=== PATIENT | female | born 1975 | race Caucasian/White ===

== ENCOUNTER 2023-04-08 10:04 | Outpatient (REF) | payer MEDICAID, SELFPAY ==
--- NOTE | ~2023-04-08 | XR_ITS ---
EXAMINATION: XR SHOULDER, LEFT CLINICAL INFORMATION: Left shoulder pain. Suspicion of rotator cuff tear COMPARISON: None available. TECHNIQUE: AP external rotation, Grashey, scapular Y, and axillary views of the left shoulder. FINDINGS: The bones are intact. No fracture. Glenohumeral and acromioclavicular alignment is anatomic with normal joint space. No abnormal soft tissue calcifications. XR/XR shoulder LT min 2V IMPRESSION: No bony abnormality.
== END 2023-04-08 10:05 | disposition home or self-care (01) ==
LOC: HO.XRAY 10:04
PROVIDERS: PCP Internal Medicine; Visit Provider Internal Medicine
DX: M25.512 Pain in left shoulder (principal)
CPT/HCPCS: 73030

== ENCOUNTER 2023-08-24 14:45 | Outpatient (REF) | payer MEDICAID, SELFPAY ==
[2023-08-25 08:30] LABS: Hepatitis B Core Antibody Nonreactive (Nonreactive); ~Hepatitis A Antibody IgM Nonreactive (Nonreactive)
[2023-08-25 08:50] LABS: HBS Num1 1.58 mIU/mL (0-7.99); HBc Num1 0.11 S/CO (0.00-0.79); HBsAGNum1 0.27 S/CO (0.00-0.99); HIV AB/AG Nonreactive (Nonreactive); HIV Num 1 0.04 S/CO (0.00-0.99); Hepatitis A Antibody IgM 0.28 Index (0-0.79); Hepatitis B Surface Antigen Negative (Negative); ~HepC Num1 0.07 S/CO (0.00-0.79); ~Hepatitis B Surface Antibody NONREACTIVE (Nonreactive); ~Hepatitis C Antibody Nonreactive (Nonreactive)
== END 2023-08-24 14:46 | disposition home or self-care (01) ==
LOC: HO.CHCLDS 14:45
PROVIDERS: Visit Provider Internal Medicine
DX: Z00.00 Encounter for general adult medical examination without abnormal findings (principal); Z11.4 Encounter for screening for human immunodeficiency virus [HIV]
CPT/HCPCS: 36415; 86704; 86706; 86709; 86803; 87340; 87389

== ENCOUNTER 2023-10-10 11:25 | Outpatient (AMB) | payer OTHER, SELFPAY ==
--- NOTE | 2023-10-10 11:31 | MHC.OFFVIS ---
Vital Signs 10/10/23 11:32 Height 5 ft 4 in Weight 150 lb BMI 25.7 Intake Visit Reasons: New patient IUD consult Driving Teacher Required: No Information Interpreted: clinical only Food Science Technician: Food Science Technician Present Allergies No Known Allergies Allergy (Verified 10/10/23 11:32) Medication List - Last Reconciled 10/10/23 by Ebony Page CNM levonorgestrel (Mirena) intrauterine Is last menstrual period known: No (IUD) Do you need a note to return to daycare/school/sports/work: No HPI HPI New patient IUD consult: Details: Patient is here to discuss replacement of her IUD. She told the medical office coordinator she is very clear she had a Pap done last year and it was negative at [facility]. No record of Pap from after 2018 found in system. Patient may be seeing [facility] site in [place] for her rn obgyn care. Review of most recent pathology in historical data shows endometrial biopsy in [address] Arteaga for menometrorrhagia. It is she has seen Dr. Lopez should she was 19 years old at the [facility] and gets her Paps done there and the only time she was seen by Dr. Arteaga was then she was bleeding very heavily and did the endometrial biopsy and then place the Mirena and she went for 1 check it after that. She says her last Pap smear was this year and it was negative. 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 Majano was her doctor. She has very much loves having the Mirena in it really helped with her bleeding once there was an adjustment time. She is lots of questions about how she will knows when she is in menopause and how the replacement procedure happens and whether not it is normal to really go years without a period. [facility] Surgical History (Updated 10/10/23 @ 11:34 by Clair Morse CMA) History of bilateral tubal ligation Social History (Updated 10/10/23 @ 11:34 by Clair Morse CMA) Alcohol intake: former Patient Tobacco Use Status: Never used Tobacco Use of substances other than those prescribed or required for medical reasons: No Sexually active: No Female Reproductive History Menstrual Age of Menarche: 13 Duration of menses: 3-5 days control method: progestin IUCD and permanent sterilization Total pregnancies: 2 Full term: 2 Date of last pap smear: 05/23/23 (negative) History of abnormal pap smear: Yes (unsure date) Date of Mammogram: 07/22/23 (negative) History of abnormal mammogram: No Physical Exam Vital Signs: BMI result Body Mass Index 25.7 Assessment & Plan Assessment & Plan (1) Presence of 52 mg levonorgestrel-releasing intrauterine device (IUD): Comment: Placed [place]orrhag[place] [address] Arteaga. to be replaced Code(s): Z97.5 - Presence of (intrauterine) contraceptive device Category: Social Hx (2) History of menorrhagia: Code(s): Z87.42 - Personal history of other diseases of the female genital tract Category: Medical (3) Cervical cancer screening: Comment: States she gets all her Pap smears through her primary care provider at the [facility] on [facility] and last 1 was negative in 2023. Code(s): Z12.4 - Encounter for screening for malignant neoplasm of cervix Category: Medical (4) Perimenopause: Comment: Discussed in detail Code(s): N95.1 - Menopausal and female climacteric states Category: Medical Plan This note is constructed using voice recognition software. While every effort has been made to ensure accuracy, pizza hut assistant errors may have been included. Discussed the timing and reasons for replacement and placement Mirena IU D and its various uses and how the influence its timing discussed the procedure itself discussed side effects discussed potential changes to menstrual bleeding discussed and discussed menopause and perimenopause issues and symptoms in detail and what to expect and considerations for considering this when it is time for the next Mirena to be replaced but at this time it would make more sense to simply replace this 1. Also discussed her history. Her next visit will be for replacement the Mirena IUD she is going to plan to take either some Tylenol or ibuprofen before coming discussed what to expect discussed that normally while it is optimal to place or replace it while somebody has there. When it is in present for this indications sometimes there is no menses , and usually we do not wait for that. Coding Level of Care Code New Pt Level 3 (08320) Diagnoses Presence of 52 mg levonorgestrel-releasing intrauterine device (IUD) Z97.5 History of menorrhagia Z87.42 Cervical cancer screening Z12.4 Perimenopause N95.1
[2023-10-10 11:32] VITALS: BMI 25.7
== END 2023-10-10 12:36 | disposition home or self-care (01) ==
LOC: HO.HWSM 11:25
PROVIDERS: PCP Internal Medicine; Visit Provider Advanced Practice Midwife
DX: Z97.5 Presence of (intrauterine) contraceptive device (principal); Z87.42 Personal history of other diseases of the female genital tract; Z12.4 Encounter for screening for malignant neoplasm of cervix; N95.1 Menopausal and female climacteric states
CPT/HCPCS: 99203

== ENCOUNTER → 2023-10-10 11:25 | Outpatient (BNVA) | payer OTHER, SELFPAY | PROVIDERS: PCP Internal Medicine; Visit Provider Advanced Practice Midwife ==

== ENCOUNTER 2023-10-24 10:08 | Outpatient (REF) | payer OTHER, SELFPAY ==
[2023-10-25 02:21] LABS: CT PCR NOT DETECTED (Not Detect.); NG PCR NOT DETECTED (Not Detect.)
[2023-10-25 08:55] LABS: Bacterial Vaginosis PCR POSITIVE (Negative); Candida Group PCR NOT DETECTED (Not Detect); Candida glab krusei PCR DETECTED (Not Detect); Trichomonas vaginalis PCR NOT DETECTED (Not Detect)
== END 2023-10-24 10:09 | disposition home or self-care (01) ==
LOC: HO.LAB 10:08
PROVIDERS: PCP Internal Medicine; Visit Provider Advanced Practice Midwife
DX: Z20.2 Contact with and (suspected) exposure to infections with a predominantly sexual mode of transmission (principal); N89.8 Other specified noninflammatory disorders of vagina
CPT/HCPCS: 0352U; 87491; 87591

== ENCOUNTER 2023-10-24 10:08 | Outpatient (AMB) | payer OTHER, SELFPAY ==
[2023-10-24 10:30] VITALS: BP 116/70; BMI 25.4
--- NOTE | 2023-10-24 10:30 | MHC.OFFVIS ---
Vital Signs 10/24/23 10:30 Height 5 ft 4 in Weight 148 lb BMI 25.4 BP 116/70 Intake Visit Reasons: Mirena Removal and Insertion Strapping Machine Operator Required: No Strapping Machine Operator Services: Strapping Machine Operator Present Information Interpreted: clinical only Turner Splitter Machine Operator: Turner Splitter Machine Operator Present Allergies No Known Allergies Allergy (Verified 10/24/23 10:30) Medication List - Last Reconciled 10/24/23 by Ebony Page CNM levonorgestrel (Mirena) intrauterine Is last menstrual period known: No (IUD) HPI HPI Mirena Removal and Insertion: Details: Patient is here for Mirena replacement she had the Mirena placed in [address] Arteaga after menorrhagia and a negative endometrial biopsy. She very much does not want those periods to return again and she has not had any periods since she would like the Mirena replaced there was a full discussion about timing Mirena at the last visit she does not get periods at all so it can not timed to menses. She use working today but left work to come here but she is uncomfortable she can work until she feels better. [facility] Surgical History History of bilateral tubal ligation Social History Alcohol intake: former Patient Tobacco Use Status: Never used Tobacco Female Reproductive History Menstrual Age of Menarche: 13 Duration of menses: <3 days control method: progestin IUCD and permanent sterilization Total pregnancies: 2 Full term: 2 Date of last pap smear: 05/23/23 (neg) History of abnormal pap smear: Yes (unsure date) Date of Mammogram: 07/22/23 (neg) Physical Exam Vital Signs: Last Vital Signs BP 116/70 10/24/23 10:30 BMI result Body Mass Index 25.4 External Female Exam: normal external appearance Speculum Exam - Vagina: normal appearance of the vagina and normal vaginal discharge Speculum Exam - Cervix: normal appearance of the cervix Bimanual exam- vagina & uterus: normal bimanual exam, uterine size normal, consistency normal, uterine mobility normal, uterine shape normal and non-tender Bimanual Exam- Adnexa, other: normal adnexae, no masses and No adnexal tenderness Office Procedures IUD Insert/Removal Details Details: ---Patient is here for her IUD removal and insertion. Bimanual exam was done. Her uterus is firm, nontender, and appropriate sized, and is antiverted. Cultures/DNA tests were obtained for GC chlamydia trich Gardnerella and Marah. Cervix appears pink smooth nulliparous and healthy patient has had 2 children vaginally but it was many many years ago) Mirena strings visible in os extending about 2-3 cms. The IUD strings were grasped with ring forceps, and as patient coughed the IUD was removed w 2 tugs ---The cervix was cleaned with Betadine. Tenaculum was placed on the cervix slowly to minimize cramping. The uterus was sounded slowly and gently, but resisted passage of the sound past the internal os and a cervical dilator was used with 2 passes and she was re sounded; it showed a measurement of 7.5 cm., The IUD was removed from its package, after checking identifying information and lot dates and expiration dates and and gently inserted into the os, as per the IUD insertion procedure. The strings were then trimmed to 3-4 centimetres. The tenaculum was removed and gentle pressure applied with a swab, until any bleeding subsided from the tenaculum sites. The speculum was gently removed. The patient sat up. She was cramping and teary.. Because of the challenges getting through the internal os out of an abundance of caution I am ordering a stat ultrasound to verify correct intrauterine placement of the Mirena IU S. She and I will have a tele visit after the ultrasound. I Reviewed what to expect, and what indications would necessitate a call. Pt to call for fever, untoward pain or cramping. I reviewed any appropriate backup method. I recommend no sex for several days as well. Pt to return for recheck as scheduled. 91408-ETQ Insertion 91552-UWB Removal Procedure code (CPT) selection complete Office Meds Mirena 21 mcg/24 hr (up to 8 years) 52 mg intrauterine device Performing Provider: Ebony Page CNM [facility] Administered by: Clair Morse CMA on 10/24/23 11:27 Dose Route Admin Location Dispensed Lot Number Expiration Date [facility] Armed Custom Protection Officer 1 device intrauterine 1 ea [id number] 12/21/25 Results AMB Test Urine AMB Test Urine Negative Last Edit by Clair Morse CMA on 10/24/23 11:01 Results Reviewed Results Reviewed: Laboratory Last Values [facility] Negative 10/24/23 10:59 Assessment & Plan Assessment & Plan (1) Presence of 52 mg levonorgestrel-releasing intrauterine device (IUD): Comment: Placed [place]orrhag[place] [address] Arteaga. to be replaced; Mirena 10/23/2022 and replaced 10/23/2022 challenging getting through the internal os who get ultrasound to verify placement. Code(s): Z97.5 - Presence of (intrauterine) contraceptive device Category: Social Hx (2) History of menorrhagia: Code(s): Z87.42 - Personal history of other diseases of the female genital tract Category: Medical (3) Cervical cancer screening: Comment: States she gets all her Pap smears through her primary care provider at the [facility] and last 1 was negative in 2023. Code(s): Z12.4 - Encounter for screening for malignant neoplasm of cervix Category: Medical (4) Perimenopause: Comment: Discussed in detail Code(s): N95.1 - Menopausal and female climacteric states Category: Medical Plan Please see the procedure section for full documentation the removal and re insertion of a new Mirena IU S. because her internal os was so tightly closed and I needed to use the dilator I am requesting a stat ultrasound to verify the intrauterine placement of the Mirena IU S the replacement patel went very smoothly. The patient and I will have a tele visit after the results of the ultrasound are in so I can review with her. Otherwise we will see her in 6 weeks. She is to call for any untoward cramping pain fever bleeding sense of expulsion. I recommend no sex for several days and the bleeding may take a while to subside. I recommend ibuprofen for the cramping or warm water bottle. Orders: Orders AMB HCG Urine Test Today Z32.02 - Encounter for test, result negative AMB IUD Insertion/Removal - Practice Supplied Today Z30.430 - Encounter for insertion of intrauterine contraceptive device US pelvic and transvaginal Today N95.1 - Menopausal and female climacteric states, Z12.4 - Encounter for screening for malignant neoplasm of cervix, Z87.42 - Personal history of other diseases of the female genital tract, Z97.5 - Presence of (intrauterine) contraceptive device Coding Level of Care Code Est Pt Level 3 (44116) Diagnoses Presence of 52 mg levonorgestrel-releasing intrauterine device (IUD) Z97.5 History of menorrhagia Z87.42 Cervical cancer screening Z12.4 Perimenopause N95.1 CPT Codes Details - CPT: 16633-CWD Insertion ([id number]) Details - CPT: 33177-VVQ Removal ([id number])
== END 2023-10-24 11:42 | disposition home or self-care (01) ==
LOC: HO.HWSM 10:08
PROVIDERS: PCP Internal Medicine; Visit Provider Advanced Practice Midwife
DX: N95.1 Menopausal and female climacteric states (principal); Z30.433 Encounter for removal and reinsertion of intrauterine contraceptive device; Z87.42 Personal history of other diseases of the female genital tract; Z32.02 Encounter for pregnancy test, result negative
CPT/HCPCS: 58300; 58301; 99213

== ENCOUNTER 2023-10-24 12:10 | Outpatient (REF) | payer OTHER, SELFPAY ==
--- NOTE | ~2023-10-24 | US_ITS ---
EXAMINATION: US PELVIS CLINICAL INFORMATION: Difficult IUD insertion COMPARISON: Pelvic ultrasound December 14, 2017 TECHNIQUE: Ultrasound of the pelvis is performed using both transabdominal and transvaginal transducers along with Doppler. Transvaginal imaging is performed due to inadequate visualization transabdominally. FINDINGS: Uterus: The uterus is anteverted and measures 9.6 x 4.5 x 5.3 cm. Only 2 of the previously seen 3 intramural leiomyomatous is are visualized, measuring 2.1 x 2.3 x 2.2 cm and 1.1 x 0.7 x 0.7 cm. Intrauterine device is noted in situ. No free fluid. Adnexa: Right ovary measures 2.0 x 1.1 x 1.3 cm and only visible on the transabdominal view. Left ovary was not visualized. US/US pelvic and transvaginal IMPRESSION: 1. Intrauterine device in situ. 2. Only 2 of previously seen 3 intramural leiomyomatous were visualized along the posterior uterine body/fundus.
== END 2023-10-24 12:11 | disposition home or self-care (01) ==
LOC: HO.US 12:10
PROVIDERS: Visit Provider Advanced Practice Midwife
DX: Z30.433 Encounter for removal and reinsertion of intrauterine contraceptive device (principal); N95.1 Menopausal and female climacteric states; Z87.42 Personal history of other diseases of the female genital tract
CPT/HCPCS: 58300; 58301; 76830; 76856; 81025; J7298

== ENCOUNTER 2024-03-04 14:00 | Outpatient (RCR) | payer OTHER, SELFPAY ==
[2024-02-12 13:52] VITALS: BP 118/78
== END 2024-03-04 14:12 | disposition home or self-care (01) ==
LOC: HO.PTCHIC 14:00
PROVIDERS: PCP Internal Medicine; Visit Provider Internal Medicine
DX: H81.10 Benign paroxysmal vertigo, unspecified ear (principal)
CPT/HCPCS: 97112; 97161

== ENCOUNTER 2024-04-02 09:11 | Outpatient (REF) | payer OTHER, SELFPAY ==
[2024-04-02 14:26] LABS: Hemoglobin 13.6 g/dl (12.0-16.0); Mean Corpuscular HGB Conc 32.4 g/dl (31.0-35.0); Mean Corpuscular Hemoglobin 28.9 pg (27.0-33.0); Mean Corpuscular Volume 89.2 fL (80.0-98.0); Mean Platelet Volume 10.2 fL (9.4-12.3); Platelet Count 227 X10*3/uL (160-400); Red Blood Count 4.71 X10*6/uL (4.20-5.50); Red Cell Distribution Width 12.7 % (11.0-16.0); White Blood Count 5.4 X10*3/uL (4.8-10.8)
[2024-04-02 14:51] LABS: Alanine Aminotransferase 20 U/L (0-31); Albumin Level 4.2 g/dL (3.5-5.0); Alkaline Phosphatase 65 U/L (39-117); Anion Gap 12 (12-20); Aspartate Amino Transferase 27 U/L (5-31); Bilirubin Total 0.4 mg/dL (0.0-1.0); Blood Urea Nitrogen 10 mg/dL (9-16); Calcium 8.8 mg/dL (8.4-10.2); Carbon Dioxide 29 mmol/L (22-29); Chloride 106 mmol/L (96-108); Cholesterol 202 mg/dL (<200); Estimated Glomerular Filt Rate > 60; Glucose Random 86 mg/dL (60-115); HDL Cholesterol 54 mg/dL (>40); LDL Cholesterol Calculated 136 mg/dL (<100); Potassium 4.1 mmol/L (3.3-5.1); Sodium 143 mmol/L (135-145); Total Protein 7.1 g/dL (6.5-8.0); Triglycerides 62 mg/dL (<150)
[2024-04-02 15:01] LABS: TSH reflex Free T4 1.12 uIU/mL (0.32-4.0)
== END 2024-04-02 09:12 | disposition home or self-care (01) ==
LOC: HO.CHCLDS 09:11
PROVIDERS: Visit Provider Internal Medicine
DX: Z13.6 Encounter for screening for cardiovascular disorders (principal); D64.9 Anemia, unspecified
CPT/HCPCS: 36415; 80053; 80061; 84443; 85027

== ENCOUNTER 2024-08-16 15:40 | Outpatient (AMB) | payer OTHER, SELFPAY ==
[2024-08-16 15:44] VITALS: BP 112/72; PULSE 72; O2SAT 93; BMI 26.4
--- NOTE | 2024-08-16 15:44 | A.OFFVIS_ITS ---
Vital Signs 08/16/24 15:44 Height 5 ft 4 in Weight 154 lb BMI 26.4 BP 112/72 Blood Pressure Location Rt brachial Position Sitting Pulse 72 Pulse Source Pulse Oximeter Pulse Oximetry (%) 93 Oxygen Delivery Method Room Air Intake Visit Reasons: Colonoscopy Screening Intake Note: NEW PATIENT for initial colo screening, routine. Chief Complaint; No GI sx or concerns at this time per pt. Accounting Recruiter Required: No Accompanied by: Self / Same As Patient Allergies No Known Allergies Allergy (Verified 08/16/24 15:44) HPI HPI Colonoscopy Screening: Details: 48 year old? female with no significant past medical history is here today for pre colonoscopy screening.? Patient was sent to us by her PCP.? Patient had colonoscopy in her 20s for change in her bowel pattern, colonoscopy was normal. Patient denies any gastrointestinal symptoms in the past or at present.? Denies any personal or family history of gastrointestinal disease, colon polyps, or CRC.? Denies history of difficulty with sedation or anesthesia in the past.? Negative for history of sleep apnea.? Denies any history of cardiac, renal, pulmonary, or hepatic disease.?? No history of infectious? diseases like hepatitis A, B, C, HIV or tuberculosis.? Patient is not on any anticoagulation PFSH Surgical History History of bilateral tubal ligation Family History Mother Rheumatoid arthritis Social History Alcohol intake: former Comment: Sober x2 years Patient Tobacco Use Status: Never used Tobacco Use of substances other than those prescribed or required for medical reasons: No Female Reproductive History Menstrual Age of Menarche: 13 Review of Systems Const Denies weight gain and Denies weight loss ENT Reports no additional complaints, Denies dysphagia and Denies odynophagia Card Reports no additional complaints Resp Reports no additional complaints GI Denies abdominal pain, Denies belching, Denies melena, Denies bloating, Denies change in bowel habits, Denies dysphagia, Denies excessive flatus, Denies dyspepsia, Denies heartburn, Denies diarrhea, Denies loose stools, Denies nausea, Denies odynophagia and Denies vomiting Musc Reports no additional complaints Neuro Reports no additional complaints Psych Reports no additional complaints Endo Reports no additional complaints Physical Exam Const General: healthy appearing, no acute distress and well developed Nutritional Appearance: well nourished Orientation/consciousness: patient oriented x3 Resp Effort & Inspection: normal respiratory effort, able to speak in complete sentences, no tracheal deviation and symmetric chest movement Auscultation: clear to auscultation bilaterally Cardio Rate: regular rate GI Inspection: Yes normal to inspection and No distended Palpation (GI): Soft to palpation, not firm, nontender and No hepatosplenomegaly present Auscultation: normal bowel sounds General: Yes no CVA tenderness Back/Spine/Pelvis Back: no CVA tenderness Skin General skin exam: elasticity normal, turgor normal and dry skin Neuro General: patient oriented x3 Psych Appearance: grossly normal Mental Status: mental status grossly normal Assessment & Plan Assessment & Plan (1) Screen for colon cancer: Code(s): Z12.11 - Encounter for screening for malignant neoplasm of colon Plan Patient denies any GI, cardiac or respiratory symptoms.? Denies any issues with anesthesia in the past.? Denies any history of sleep apnea.? No history i nfectious diseases in the past or present.? Not on any anticoagulation therapy.? No family or personal history of colon cancer or polyps.? Patient denies melena, hematochezia, unintentional weight loss or ribbon like stools.? Discussed at length the pre-procedure,? prep, diet & medications as well as what to expect prior, during and after the procedure.?? Stressed the importance of good bowel prep.? Recommended the use of Vaseline or Calmoseptine OTC & baby wipes with bowel movements to promote comfort.? ?Patient verbalizes understanding and agrees to plan of care.? She was given the opportunity to ask questions and all questions answered.? We will see her after the procedure.? Medications: New polyethylene glycol 3350 (Miralax) As directed by gastroenterology department at [facility] 238 grams PO ONCE 238 grams 0RF Z12.11 - Encounter for screening for malignant neoplasm of colon bisacodyl (Dulcolax (bisacodyl)) 10 mg (2 x 5 mg) PO BEDTIME 180 tabs 4RF Coding Level of Care Code New Pt Level 3 (87136) Diagnoses Screen for colon cancer Z12.11 Time Spent (min) 40 Comment 30 minutes spent with patient and additional 10 minutes spent reviewing her records
--- OUTSIDE RECORDS SUMMARY | 2024-08-16 16:06 | XMS_ITS | Encounter Summary ---
Author Organization [employer] Address [address] [facility] [address] [place] [address] Care Team Providers Care Home Health Nurse Name Role Phone Karri Pierson MD Primary Care Provider [phone] Reason for Visit * Reason Onset Date Comments Call Back Request 10/03/2023 Encounter Details Date Type Department Care Team (Late st Contact Info) Description 10/03/2023 Telephone [facility] MED[facility]INE [address] [place] [address] Karri Pierson MD [address] [place] [address] [phone] Call Back Request Social History Tobacco Use Types Packs/Day Years Used Date Smoking Tobacco: Never Passive Smoke Exposure: Never Smokeless Tobacco: Never Alcohol Use Standard Drinks/Week Comments Never 0 (1 standard drink = 0.6 oz pur e alcohol) Depression Answer Date Recorded Patient Health Questionnaire-9 Score 7 08/11/2022 Housing Stability Answer Date Recorded What is your housing situation today? I have wilma [place] 08/21/[address] you li ve. Do you have problems with any of the following? None of the above 08/21/2023 Food Insecurity Answer Date Recorded Within the past 12 months, y ou worried that your food would run out before you got money to buy more: Never True 08/21/2023 Within the past 12 months,th e food you bought just didn't last and you didn't have enough money to get more: Never True Transportation Answer Date Recorded In the past 12 months, has l ack of transportation kept you from medical appts, meetings, work or from getting things needed for daily living? No 08/21/2023 Utilities Answer Date Recorded In the past 12 months, has t he electric, gas, oil or water company threatened to shut off services in your home? No 08/21/2023 Depression Answer Date Recorded Patient Health Questionnaire-2 Score 2 08/11/2022 Comments Unknown Sex and Gender Information Value Date Recorded Sex Assigned at Female 02/21/2022 10:22 AM EDT Legal Sex Female 10:22 AM EDT Gender Identity Female 02/21/2022 10:22 AM EDT Sexual Orientation Straight 02/21/2022 10 :22 AM EDT documented as of this encounter Miscellaneous Notes * Telephone Encounter - Myrtle Gamble - 10/03/2023 4:07 PM EDT Tc from pt requesting a call back to see what's going to happen with her meds due to appt with PCP is on 12/13 documented in this encounter Plan of Treatment Upcoming Encounters Date Type Department Care Team (Late st Contact Info) Description 09/03/2024 9:30 AM EDT Office Visit [facility] MED [facility] [address] [place] [address] Karri Pierson MD [address] [place] [address] documented as of this encounter Visit Diagnoses Not on filedocumented in this encounter Additional Health Concerns Assessment Noted Time PHQ-9 Depression Total Score: 7 08/12/19 23 1:21 PM EDT documented as of this encounter Care Teams Home Health Nurse Relationship Specialty Start Date End Date Karri Pierson MD [address] [place] [address] PCP - General Internal Medicine 02/21/12 documented as of this encounter
--- OUTSIDE RECORDS SUMMARY | 2024-08-16 16:06 | XMS_ITS | Encounter Summary ---
Author Organization [employer] Address [address] [place] [address] [address] [place] [address] Care Team Providers Care Creative Director Name Role Phone Karri Pierson MD Primary Care Provider [phone] Encounter Details Date Type Department Care Team ([facility] Contact Info) Description 08/17/2022 Abstract [facility] MED & PEDS [address] [place], [place] [phone] Karri Pierson MD [address] [place], [place] [phone] Social History Tobacco Use Types Packs/Day Years Used Date Smoking Tobacco: Never Smokeless Tobacco: Never Alcohol Use Standard Drinks/Week Comments Never 0 (1 standard drink = 0.6 oz pur e alcohol) Depression Answer Date Recorded Patient Health Questionnaire-9 Score 7 08/11/2022 Depression Answer Date Recorded Patient Health Questionnaire-2 Score 2 08/11/2022 Comments Unknown Sex and Gender Information Value Date Recorded Sex Assigned at Female 02/21/2022 10:22 AM EDT Legal Sex Female 10:22 AM EDT Gender Identity Female 02/21/2022 10:22 AM EDT Sexual Orientation Straight 02/21/2022 10 :22 AM EDT COVID-19 Exposure Response Date Recorded In the last 10 days, have yo u been in contact with someone who was confirmed or suspected to have Coronavirus/COVID-19? No / Unsure 08/11/2022 1:05 PM EDT documented as of this encounter Plan of Treatment Upcoming Encounters Date Type Department Care Team ([facility] Contact Info) Description 09/03/2024 9:30 AM EDT Office Visit [facility] MED & PEDS [address] [place] [address] Karri Pierson MD [address] [place] [address] documented as of this encounter Procedures Procedure Name Priority Date/Time Associated Diagnosis Comments MAMMOGRAPHY Routine 08/11/2022 documented in this encounter Results * Mammography (08/11/2022) Mammogram performed Anatomical Region Laterality Modality Other us Historical Provider HEALTH MAINTENANCE Final Result documented in this encounter Visit Diagnoses Not on filedocumented in this encounter Additional Health Concerns Assessment Noted Time PHQ-9 Depression Total Score: 7 08/12/19 23 1:21 PM EDT documented as of this encounter Care Teams Creative Director Relationship Specialty Start Date End Date Karri Pierson MD [address] [place] [address] PCP - General Internal Medicine 02/21/12 documented as of this encounter
--- OUTSIDE RECORDS SUMMARY | 2024-08-16 16:06 | XMS_ITS | Encounter Summary ---
Author Organization [employer] Address [address] [place] [address] Care Team Providers Care Voucher Examiner Name Role Phone Karri Pierson MD Primary Care Provider [phone] Reason for Referral * Imaging (Urgent) - Closed Specialty Diagnoses / Procedures Referred By Contej t Referred To Contact Radiology Diagnoses Acute pain of left shoulder Procedures MR Shoulder w/o Contrast Left Karri Pierson MD [address] [place] [address] Phone: tel: fax: [facility] [address] [place] [address] Phone: tel: fax: Referral ID Status Reason Start Date Expiration Date Visits Re quested Visits Authorized [id number] Closed 05/02/2023 05/01/2024 1 1 Encounter Details Date Type Department Care Team (Late st Contact Info) Description 05/01/2023 Orders Only [facility] MED & PEDS [address] [place], [place] [phone] Karri Pierson MD [address] [place], [place] [phone] Acute pain of left shoulder (Primary Dx) Social History Tobacco Use Types Packs/Day Years Used Date Smoking Tobacco: Never Passive Smoke Exposure: Never Smokeless Tobacco: Never Alcohol Use Standard Drinks/Week Comments Never 0 (1 standard drink = 0.6 oz pur e alcohol) Depression Answer Date Recorded Patient Health Questionnaire-9 Score 7 08/11/2022 Housing Stability Answer Date Recorded What is your housing situation today? Not on jose manuel e 02/14/[address] you li ve. Do you have problems with any of the following? None of the above 02/14/2023 Food Insecurity Answer Date Recorded Within the past 12 months, y ou worried that your food would run out before you got money to buy more: Never True 02/14/2023 Within the past 12 months,th e food you bought just didn't last and you didn't have enough money to get more: Never True Transportation Answer Date Recorded In the past 12 months, has l ack of transportation kept you from medical appts, meetings, work or from getting things needed for daily living? No 02/14/2023 Utilities Answer Date Recorded In the past 12 months, has t he electric, gas, oil or water company threatened to shut off services in your home? No 02/14/2023 Depression Answer Date Recorded Patient Health Questionnaire-2 Score 2 08/11/2022 Comments Unknown Sex and Gender Information Value Date Recorded Sex Assigned at Female 02/21/2022 10:22 AM EDT Legal Sex Female 10:22 AM EDT Gender Identity Female 02/21/2022 10:22 AM EDT Sexual Orientation Straight 02/21/2022 10 :22 AM EDT documented as of this encounter Plan of Treatment Upcoming Encounters Date Type Department Care Team (Late st Contact Info) Description 09/03/2024 9:30 AM EDT Office Visit [facility] MED & PEDS [address] [place] [address] Karri Pierson MD [address] [place] [address] Scheduled Orders Name Type Priority Associated Diagnoses Orde r Schedule MR Shoulder w/o Contrast Left Imaging Urgent Acute pain of left shoulder Expected: 05/02/2023, Expires: 05/02/2024 documented as of this encounter Visit Diagnoses Diagnosis Acute pain of left shoulder- Primary documented in this encounter Additional Health Concerns Assessment Noted Time PHQ-9 Depression Total Score: 7 08/12/19 23 1:21 PM EDT documented as of this encounter Care Teams Voucher Examiner Relationship Specialty Start Date End Date Karri Pierson MD [address] [place] [address] PCP - General Internal Medicine 02/21/12 documented as of this encounter
--- OUTSIDE RECORDS SUMMARY | 2024-08-16 16:06 | XMS_ITS | Encounter Summary ---
Author Organization [employer] Address [address] [facility] [address] [place] [address] Care Team Providers Care Orthopedic Surgeon Name Role Phone Karri Pierson MD Primary Care Provider [phone] Encounter Details Date Type Department Care Team (Late st Contact Info) Description 05/15/2023 Telephone [facility] MEDICINE [address] [place] [address] Karri Pierson MD [address] [place], [place] [phone] Social History Tobacco Use Types Packs/Day Years [...] Description 09/03/2024 9:30 AM EDT Office Visit [facility] MED & PEDS [address] [place] [address] Karri Pierson MD [address] [place] [address] documented as of this encounter Visit Diagnoses Not on filedocumented in this encounter Additional Health Concerns Assessment Noted Time PHQ-9 Depression Total Score: 7 08/12/19 23 1:21 PM EDT documented as of this encounter Care Teams Orthopedic Surgeon Relationship Specialty Start Date End Date Karri Pierson MD [address] [place] [address] PCP - General Internal Medicine 02/21/12 documented as of this encounter
--- OUTSIDE RECORDS SUMMARY | 2024-08-16 16:06 | XMS_ITS | Encounter Summary ---
Author Organization [employer] Address [address] [facility] [address] [place] [address] Care Team Providers Care Angle Roll Operator Name Role Phone Karri Pierson MD Primary Care Provider [phone] Reason for Visit * Reason Onset Date Comments Med Refill 06/16/2023 Encounter Details Date Type Department Care Team (Late st Contact Info) Description 06/16/2023 Refill [facility] MEDICINE [address] [place] [address] Karri Pierson MD [address] [place] [address] [phone] Acute pain of left shoulder (Primary Dx) [...] encounter Miscellaneous Notes * Telephone Encounter - Se Reyes - 06/16/2023 8:27 AM EST TC from pt requesting medication refill. Medications needing refill : oxyCODONE-acetaminophen (Percocet) 5-325 MG tablet To be sent to: [id number] [place], [place] - [facility] [address] documented in this encounter Plan of Treatment Upcoming Encounters Date Type Department Care Team (Late st Contact Info) Description 09/03/2024 9:30 AM EDT Office Visit [facility] MED & PEDS [address] [place] [address] Karri Pierson MD [address] [place] [address] documented as of this encounter Visit Diagnoses Diagnosis Acute pain of left shoulder- Primary documented in this encounter Additional Health Concerns Assessment Noted Time PHQ-9 Depression Total Score: 7 08/12/19 23 1:21 PM EDT documented as of this encounter Care Teams Angle Roll Operator Relationship Specialty Start Date End Date Karri Pierson MD [address] [place] [address] PCP - General Internal Medicine 02/21/12 documented as of this encounter
--- OUTSIDE RECORDS SUMMARY | 2024-08-16 16:06 | XMS_ITS | Encounter Summary ---
Author Organization [employer] Address [address] [place] [address] 7[address] [place] [address] Care Team Providers Care Cord Maker Name Role Phone Karri Pierson MD Primary Care Provider [phone] Encounter Details Date Type Department Care Team (Late Contact Info) Description 08/15/2022 Orders Only [facility] MED & PEDS [address] [place], [place] [phone] Karri Pierson MD [address] [place], [place] [phone] Cervicogenic headache (Primary Dx) Social History Tobacco Use Types [...] Encounters Date Type Department Care Team (Late Contact Info) Description 09/03/2024 9:30 AM EDT Office Visit [facility] MED & PEDS [address] [place] [address] Karri Pierson MD [address] [place] [address] documented as of this encounter Visit Diagnoses Diagnosis Cervicogenic headache- Primary Headache documented in this encounter Additional Health Concerns Assessment Noted Time PHQ-9 Depression Total Score: 7 08/12/19 23 1:21 PM EDT documented as of this encounter Care Teams Cord Maker Relationship Specialty Start Date End Date Karri Pierson MD [address] [place] [address] PCP - General Internal Medicine 02/21/12 documented as of this encounter
--- OUTSIDE RECORDS SUMMARY | 2024-08-16 16:06 | XMS_ITS | Encounter Summary ---
Author Organization [employer] Address [address] [facility] [address] [place] [address] Care Team Providers Care Substation Operator Name Role Phone Karri Pierson MD Primary Care Provider [phone] Reason for Visit * Reason Onset Date Comments Call Back Request 05/22/2023 Encounter Details Date Type Department Care Team (Late st Contact Info) Description 05/22/2023 Telephone [facility] MEDICINE [address] [place] [address] Karri Pierson MD [address] [place] [address] [phone] Call Back Request Social History Tobacco Use [...] past 12 months, has t he electric, [employer], oil or water [employer] threatened to shut off services in your [...] encounter Miscellaneous Notes * Telephone Encounter - Cristela Cotton RN - 05/24/2023 11:16 AM EST Pt needs excuse letter from 05/17/23 until 05/25/23 as pt has Ortho appt tomorrow. * Telephone Encounter - Cristela Cotton RN - 05/24/2023 10:00 AM EST Placed call to pt regarding message below. Pt is requesting another short dose of the Oxycodone as pt states it helps with pain and sleep. Pt has upcoming appt with Ortho on Monday and shoulder pain is bad enough that pt has not been able to work since the following day after pt was seen. Pt is requesting an excuse not for this past week since last appt as pt has not been able to work. Regarding FMLA advised pt needs to contact employer for directions and how to contact [employer] company for further instruction. Pt informed message would be sent to PCP for refill request and work excuse. Pt agrees with plan. * Telephone Encounter - Mariajose Renee - 05/23/2023 2:56 PM EST Tc from pt requesting a call back, pt states have a couple questions in regards her shoulder and prescriptions and Question family medical leave. * Telephone Encounter - Myrtle Gamble - 05/22/2023 9:30 AM EST Tc from pt requesting a call back, pt states have a couple questions in regards her shoulder and prescriptions. documented in this encounter Plan of Treatment Upcoming Encounters Date Type Department Care Team (Late st Contact Info) Description 09/03/2024 9:30 AM EDT Office Visit [facility] MED & PEDS [address] [place] [address] Karri Pierson MD [address] [place] [address] documented as of this encounter Visit Diagnoses Diagnosis Acute pain of left shoulder- Primary documented in this encounter Additional Health Concerns Assessment Noted Time PHQ-9 Depression Total Score: 7 08/12/19 23 1:21 PM EDT documented as of this encounter Care Teams Substation Operator Relationship Specialty Start Date End Date Karri Pierson MD [address] [place] [address] PCP - General Internal Medicine 02/21/12 documented as of this encounter
--- OUTSIDE RECORDS SUMMARY | 2024-08-16 16:06 | XMS_ITS | Clinical Summary ---
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 DX:Carcinoma in situ of cervix uteri; COMMENT: LEEP Family History Medical History Relation Name Comments Other: alive and well Father Other: alive and well Mother Relation Name Status Comments Father Mother Social History Tobacco Use Types Packs/Day Years Used Date Smoking Tobacco: Never Alcohol Use Standard Drinks/Week Comments Yes 0 (1 standard drink = 0.6 oz pur e alcohol) Comments Unknown Sex and Gender Information Value Date Recorded Sex Assigned at Not on file Legal Sex Female 8:00 AM EST Gender Identity Not on file Sexual Orientation Not on file Obstetrics History Plan of Treatment Health Maintenance Due Date Last Done Comments DTaP,Tdap,and Td Vaccines (1 - Tdap) 11/14/1994 Hepatitis B Vaccines (1 of 3 - 19+ 3-dose series) 11/14/1994 Cervical Cancer Screening: Pap Smear 11/14/1996 Colorectal Cancer Screening: Colonoscopy 03/27/2022 Depression Screening 03/27/2022 HIV Screening 03/27/2022 Hepatitis C Screening 03/27/2022 Social Influencers of Health Screening 03/27/2022 COVID-19 Vaccine ( season) 2023 Influenza Vaccine (Season Ended) 2024 Breast Cancer Screening 08/13/2025 08/14/19, 08/11/2022, 04/06/2021, Additional history exists HIB Vaccines Aged Out No longer eligi ble based on patient's age to complete this topic HPV Vaccines Aged Out No longer eligi ble based on patient's age to complete this topic Hepatitis A Vaccines Aged Out No long er eligible based on patient's age to complete this topic IPV Vaccines Aged Out No longer eligi ble based on patient's age to complete this topic MMR Vaccines Aged Out No longer eligi ble based on patient's age to complete this topic Meningococcal ACWY Vaccine Aged Out N o longer eligible based on patient's age to complete this topic Meningococcal B Vaccine Aged Out No l onger eligible based on patient's age to complete this topic Pneumococcal Vaccine: Pediatrics (0 to 5 Years) and At-Risk Patients (6 to 64 Years) Aged Out No longer eligible based on patient's age to complete this topic RSV Immunization Patients Under 20 months Aged Out No longer eligible based on patient's age to complete this topic Varicella Vaccines Aged Out No longer eligible based on patient's age to complete this topic Procedures Procedure Name Priority Date/Time Associated Diagnosis Comments [facility] SCREENING DIGITAL Routine 08/14/2023 4:25 PM EDT Encounter for screening mammogram for malignant neoplasm of breast from Last 3 Months or Most Recently Relevant to Health Maintenance Results * [facility] SCREENING DIGITAL (08/14/2023 4:25 PM EDT) Anatomical Region Laterality Modality Mammography 08/14/2023 1:41 PM EDT Narrative 08/14/2023 4:25 PM EDT [facility] Diagnostic Imaging Department [address] [place] [address] Patient: ??SOPHIA ORTA ?/Age/Sex: 1975 - 47 - F Unit#: ??[id number] ? Location/Status: ??SPDIMAM/REG CLI ? Mnemonic/Ordering Site: ??DIGSC/SPMAM Ordering Physician: ??ROMAN PIERSON Bipin Screening Digital - 08/14/23 - 1411 Report Status:Signed EXAM: [facility] Screening Digital EXAM DATE AND TIME: 08/14/2023 2:12 PM HISTORY: ??Screening. Patient states 1520 pound weight loss since previous exam. Frozen left shoulder with severely decreased range of motion. COMPARISON: ??08/11/22, 04/05/21, 01/24/19 TECHNIQUE: Bilateral digital breast tomosynthesis was performed in the CC and MLO projections. Computer aided detection with [employer] 3D 3.1 was employed. TISSUE DENSITY: b. There are scattered areas of fibroglandular density. FINDINGS: The left MLO view is limited due to the poorly mobile left shoulder. No suspicious masses, grouped microcalcifications, or areas of architectural distortion are seen. There are rare benign calcifications. The skin and vascularity are unremarkable. IMPRESSION: No mammographic evidence of malignancy is seen. No significant change. A negative mammogram in the presence of a clinically suspicious palpable abnormality does not preclude the possibility of malignancy or alter the indications for biopsy. BI-RADS: ??Category 2: Benign RECOMMENDATION(S): 1: Routine screening mammogram BILATERAL in 1 year. Dictating Physician: ??CANDI RODRIGUEZ MD Electronically Signed by: ??CANDI RODRIGUEZ MD Dic Date/Time: ??08/14/23 1624 Sign date/Time: ??08/14/23 1625 Procedure Note Candi Rodriguez MD - 12/11/2023 [facility] Diagnostic Imaging Department [address] [place] [id number] Patient: SOPHIA ORTA Jesus Alberto /Age/Sex: 1975 - 47 - F Unit#: [id number] Location/Status: SPDIMAM/REG CLI Mnemonic/Ordering Site: [facility] Ordering Physician: ROMAN PIERSON [facility] Screening Digital - 08/14/23 - 1411 Report Status:Signed EXAM: [facility] Screening Digital EXAM DATE AND TIME: 08/14/2023 2:12 PM HISTORY: Screening. Patient states 1520 pound weight loss since previousexam. Frozen left shoulder with severely decreased range of motion. COMPARISON: 08/11/22, 04/05/21, 01/24/19 TECHNIQUE: Bilateral digital breast tomosynthesis was performed in the CCand MLO projections. Computer aided detection with [employer] 3D 3.1was employed. TISSUE DENSITY: b. There are scattered areas of fibroglandular density. FINDINGS: The left MLO view is limited due to the poorly mobile left shoulder. No suspicious masses, grouped microcalcifications, or areas ofarchitectural distortion are seen. There are rare benign calcifications. The skin and vascularity are unremarkable. IMPRESSION: No mammographic evidence of malignancy is seen. No significant change. A negative mammogram in the presence of a clinically suspicious palpable abnormality does not preclude the possibility of malignancy or alter the indications for biopsy. BI-RADS: Category 2: Benign RECOMMENDATION(S): 1: Routine screening mammogram BILATERAL in 1 year. Dictating Physician: CANDI RODRIGUEZ MD Electronically Signed by: CANDI RODRIGUEZ MD Dic Date/Time: 08/14/23 1624 Sign date/Time: 08/14/23 1625 us Roman Pierson MD IMG BI PROCEDURES Final R esult from Last 3 Months or Most Recently Relevant to Health Maintenance
--- OUTSIDE RECORDS SUMMARY | 2024-08-16 16:06 | XMS_ITS | Encounter Summary ---
Author Organization [employer] Address [address] [facility] 7t [place] [address] Care Team Providers Care Senior Telecommunications Consultant Name Role Phone Karri Pierson MD Primary Care Provider [phone] Encounter Details Date Type Department Care Team (Late st Contact Info) Description 08/15/2023 Orders Only [facility] [address] [place], [place] [phone] Provider, MD Radha Social History Tobacco Use Types Packs/Day Years [...] Description 09/03/2024 9:30 AM EDT Office Visit [facility] MED & PEDS [address] [place] [address] Karri Pierson MD [address] [place] [address] documented as of this encounter Procedures Procedure Name Priority Date/Time Associated Diagnosis Comments BI MAMMOGRAM SCREENING BILATERAL Routine 08/14/2023 10:03 AM EDT documented in this encounter Results * BI Mammogram Screening Bilateral (08/14/2023 10:03 AM EDT) Anatomical Region Laterality Modality Breast Bilateral Mammography Historical Provider MD LOPEZ BI PROCEDURES Final R esult documented in this encounter Visit Diagnoses Not on filedocumented in this encounter Additional Health Concerns Assessment Noted Time PHQ-9 Depression Total Score: 7 08/12/19 23 1:21 PM EDT documented as of this encounter Care Teams Senior Telecommunications Consultant Relationship Specialty Start Date End Date Karri Pierson MD [address] [place] [address] PCP - General Internal Medicine 02/21/12 documented as of this encounter
--- OUTSIDE RECORDS SUMMARY | 2024-08-16 16:06 | XMS_ITS | Encounter Summary ---
Author Organization [employer] Address [address] [facility] [address] [place] [address] Care Team Providers Care Cleaner And Preparer Name Role Phone Karri Pierson MD Primary Care Provider [phone] Reason for Visit * Reason Onset Date Comments Nurse Triage 01/22/2024 Encounter Details Date Type Department Care Team (Late st Contact Info) Description 01/22/2024 Telephone [facility] MEDICINE [address] [place] [address] Karri Pierson MD [address] [place] [address] [phone] Nurse Triage Social History Tobacco Use Types Packs/Day Years [...] encounter Miscellaneous Notes * Telephone Encounter - Vickie Franz RN - 01/22/2024 10:51 AM EDT Triage call Pt reports 01/20/24 started having some dizziness, 01/21/24 had continued dizziness, balance was effected and vomited x2-3 . Pt reports headache today, right ear pain and continued dizziness. Pt is offered to be seen today but, is in [place] coming home from weekend shanita. Pt reports drinking plenty of liquids. Advised to try warm teas and agrees. Pt has obtained OTC dramamine and taken without effect. Pt is advised to try OTC meclizine which is helpful for dizziness and agreesto try. ASK apt [facility] 01/23/24 @ 340pm. Insurance is verified as active prior to booking. Protocol Used: Dizziness (Adult) Protocol-Based Disposition: See in Office or Video Visit Today Video visit not offered Positive Triage Questions: * Moderate dizziness (e.g., interferes with normal activities) (Exception: Dizziness caused by heatexposure, sudden standing, or poor fluid intake.) * Vomiting occurs with dizziness * Patient wants to be seen * All higher-acuity triage questions were negative Care Advice Discussed: * Drink Fluids * Lie Down and Rest * Reasons To Call Back - After 2 hours of rest and fluids and you are still feeling dizzy - You pass out (faint) or are too weak to stand - You become worse * Sit Up Slowly Before Standing * Telephone Encounter - Micheal Lewis - 01/22/2024 10:40 AM EDT Tc from pt returning call regarding message prior. * Telephone Encounter - Se Reyes - 01/22/2024 9:33 AM EDT Symptoms: Dizziness, Vomiting, Nausea But No Vomiting, Lethargic (Tired) Outcome: Schedule an urgent appointment (within 4 hours) or talk to a nurse or provider soon Reason: Started within the past 3 days The caller accepted this outcome. documented in this encounter Plan of Treatment Upcoming Encounters Date Type Department Care Team (Late st Contact Info) Description 09/03/2024 9:30 AM EDT Office Visit [facility] MED & PEDS [address] [place] [address] Karri Pierson MD [address] [place] [address] documented as of this encounter Visit Diagnoses Not on filedocumented in this encounter Additional Health Concerns Assessment Noted Time PHQ-9 Depression Total Score: 7 08/12/19 23 1:21 PM EDT documented as of this encounter Care Teams Cleaner And Preparer Relationship Specialty Start Date End Date Karri Pierson MD [address] [place] [address] PCP - General Internal Medicine 02/21/12 documented as of this encounter
--- OUTSIDE RECORDS SUMMARY | 2024-08-16 16:06 | XMS_ITS | Clinical Summary ---
Author Organization [employer] Address 75 [facility] 7t [place] [address] Care Team Providers Care Auto Mechanics Instructor Name Role Phone Karri Pierson MD Primary Care Provider Allergies Active Allergy Reactions Criticality Noted Date Comments Phenazopyridine 05/27/2013 Other reaction(s): Nausea / Vomiting Medications permethrin (Elimite) 5 % cream apply to skin from hairline to toes and wash off 8-10 hours later. May repeat in 1-2 weeks if sx persist 60 g 1 3 Active Diclofenac Sodium 1 % gelIndications: Acute pain of left shoulder To apply to the affected area 3 times a day 100 g 1 3 Active pseudoephedrine (Sudafed) 30 MG tablet Take 1 tablet (30 mg) by mouth every 4 (four) hours if needed for congestion for up to 10 days. 30 tablet 4 Active ondansetron (Zofran) 4 MG tablet Take 1 tab orally prn nausea daily 20 tablet 4 Active Active Problems Problem Noted Date Diagnosed Date Anemia 12/14/2011 Opioid abuse 12/14/2011 Backache 12/14/2011 Encounters Date Type Department Care Team Description 07/17/2024 Telephone [facility] MED & PEDS [address] [place] [address] Karri Pierson MD Nurse Triage from Last 3 Months Family History Medical History Relation Name Comments Hypertension Father Diabetes Mother Hypertension Mother Rheum arthritis Mother Relation Name Status Comments Father Mother Social History Tobacco Use Types Packs/Day Years Used Date Smoking Tobacco: Never Passive Smoke Exposure: Never Smokeless Tobacco: Never Tobacco Cessation:Counseling Given: Not Answered Alcohol Use Standard Drinks/Week Comments Never 0 [...] Orientation Straight 02/21/2022 10 :22 AM EDT Last Filed Vital Signs Vital Sign Reading Time Taken Comments Blood Pressure 135/80 01/23/2024 3:40 PM EDT Pulse 77 01/23/2024 1:39 PM EDT Temperature 37.1 ??C (98.8 ??F) 01/23/2024 1:39 PM ED T Respiratory Rate 12 01/23/2024 1:39 PM EDT Oxygen Saturation 93% 01/23/2024 1:39 PM EDT Inhaled Oxygen Concentration - - Weight 68.5 kg (151 lb) 01/23/2024 1:39 PM EDT Height 162.6 cm (5' 4 ) 01/23/2024 1:39 PM EDT Body Mass Index 25.92 01/23/2024 1:39 PM EDT Plan of Treatment Upcoming Encounters Date Type Department Care Team (Late st Contact Info) Description 09/03/2024 9:30 AM EDT Office Visit [facility] MED & PEDS [address] [place] [address] Karri Pierson MD [address] [place] [address] Health Maintenance Due Date Last Done Comments CT Colonography 1975 Colonoscopy 1975 Colorectal Cancer Screening 1975 FIT DNA/Cologuard 1975 FIT 1975 FOBT 1975 Sigmoidoscopy 1975 Alcohol/Substance Use Screening 1987 Family Planning (PISQ) 11/14/1990 Hepatitis B Vaccines (3 of 3 - 19+ 3-dose series) 07/10/2012 05/15/2012, 03/27/2012, 10/18/2011 Depression Screening 08/12/2023 08/11/2022, 08/12/19 23 COVID-19 Vaccine ( season) 2023 02/18/2022, 05/27/2021, 09/17/2020, Additional history exists Influenza Vaccine (#1) 2023 01/24/2012 Mammogram 08/13/2024 08/14/2023, 07/24, 08/11/2022 SDOH Screening 08/20/2024 08/21/2023 Tobacco Screening 12/13/2024 12/14/2023 Zoster Vaccines (1 of 2) 11/14/2025 Cervical Cancer Screening 11/17/2025 HPV/Cotest 11/17/2025 11/17/2020 Pap Smear 11/17/2025 11/17/2020 DTaP/Tdap/Td Vaccines (2 - Td or Tdap) 11/01/2026 11/01/2016, 07/13/2004 RSV Patients and Patients Aged 60 years or older (1 - 1-dose 75+ series) 11/14/2050 Hepatitis A Vaccines Aged Out 03/02/2022, 10/18/19 12 No longer eligible based on patient's age to complete this topic HIV Screening Completed 08/24/2023 Hepatitis C Screening Completed 08/24/2023 HIB Vaccines Aged Out No longer eligi ble based on patient's age to complete this topic HPV Vaccines Aged Out No longer eligi ble based on patient's age to complete this topic IPV Vaccines Aged Out No longer eligi ble based on patient's age to complete this topic Meningococcal Vaccine Aged Out No edgar sanjiv eligible based on patient's age to complete this topic Pneumococcal Vaccine: Pediatrics (0 to 5 Years) and At-Risk Patients (6 to 49) Years) Aged Out No longer eligible based on patient's age to complete this topic RSV under 20 months Aged Out No longe r eligible based on patient's age to complete this topic Rotavirus Vaccines Aged Out No longer eligible based on patient's age to complete this topic Procedures Procedure Name Priority Date/Time Associated Diagnosis Comments HEPATITIS PANEL, GENERAL Routine 08/24/2023 2:48 PM EDT Annual physical exam HIV 1/2 ANTIGEN/ANTIBODY, FOURTH GENERATION W/RFL Routine 08/24/2023 2:48 PM EDT Annual physical exam BI MAMMOGRAM SCREENING BILATERAL Routine 08/14/2023 10:03 AM EDT HPV MRNA E6/E7 Routine 11/17/2020 3:58 PM EDT THINPREP PAP Routine 11/17/2020 3:58 PM EDT from Last 3 Months or Most Recently Relevant to Health Maintenance Results * Hepatitis A,B,C Profile (08/24/2023 2:48 PM EDT) Hepatitis A IgM Nonreactive Nonreactive [facility] Comment:IgM antibodies to VILLAR V not detected; does not exclude earlyacute or recovered HAV infection. ~Hepatitis B Surface Antibody NONREACTIVE Nonreactive [facility] Comment:Nonreactive: < 8.00 mIU/mL Hepatitis B Core Antibody Nonreactive Nonreactive [facility] Hepatitis C Antibody Nonreactive Nonreactive [facility] Comment:Antibodies to HCV no t detected; does not exclude early acuteHCV infection. Hepatitis B Surface Ag Negative Negative [facility] Blood Venous blood specimen / Unknown 08/24/2023 2:48 PM EDT 08/24/2023 5:15 PM EDT us Karri Pierson MD LAB BLOOD ORDERABLES Final Result Performing Organization Address [facility] Co de Phone Number [facility] [address] [place] [address] [phone] * HIV-1/2 Antigen and Antibodies, Fourth Generation, with Reflexes (08/24/2023 2:48 PM EDT) HIV AB/AG Nonreactive Nonreactive [facility] Comment:HIV-1 p24 Ag and/or HIV-1/HIV-2 Ab not detected.A test result that is nonreactive does not exclude thepossibility of exposure to or infection with HIV-1 and/orHIV-2. Nonreactive results in this assay for individualswith prior exposure to HIV-1 and/or HIV-2 may be due toantigen and antibody levels that are below the limit ofdetection of this assay.The [employer] HIV Ag/Ab Combo assay result andsupplemental assay results should be interpreted inconjunction with the patient's clinical presentation,history and other laboratory results. If the results areinconsistent with clinical evidence, additional testing issuggested to confirm the result. Blood Venous blood specimen / Unknown 08/24/2023 2:48 PM EDT 08/24/2023 5:15 PM EDT us Karri Pierson MD LAB BLOOD ORDERABLES Final Result Performing Organization Address [facility] Co de Phone Number [facility] [address] [place] [address] [phone] * BI Mammogram Screening Bilateral (08/14/2023 10:03 AM EDT) Anatomical Region Laterality Modality Breast Bilateral Mammography us Historical Provider IMG BI PROCEDURES Final R esult * THINPREP PAP (11/17/2020 3:58 PM EDT) Clinical Information: None given [facility] COMMENT SEE COMMENT [facility] Comment: EXPLANATORY NOTE: ? The Pap is a screening test for cervical cancer. It is ?? not a diagnostic test and is subject to false negative ?? and false positive results. It is most reliable when a ?? satisfactory sample, regularly obtained, is submitted ?? with relevant clinical findings and history, and when ?? the Pap result is evaluated along with historic and ?? current clinical information. ?? Surgical Instrument Maker : SEE COMMENT [facility] Comment: GSG, CT(ASCP) CT screening location: [address] ??[id number] Interpretation/R esult: Negative for intraepithelial lesion or malignancy. [facility] LMP: IUD [facility] Prev. BX: NONE GIVEN [facility] Prev. PAP: NONE GIVEN [facility] SOURCE: None given [facility] Statement Of Adequacy: SEE COMMENT [facility] Comment: Satisfactory for evaluation. Endocervical/transformation zone component absent. 11/17/2020 3:58 PM EDT Cassie Gonzales [facility] LAB PATHOLOGY ORDERABLES Final Result [facility] [address] * HPV mRNA E6/E7 (11/17/2020 3:58 PM EDT) HPV nRNA E6/E7 Not Detected Not Detected [facility] Comment: Methodology: Legal Administrative Secretary-Mediated Amplification This assay detects E6/E7 viral messenger RNA (mRNA) from 14 high-risk HPV types (16,18,31,33,35,39,45,51,52,56,58,59,66,68). ? The analytical performance characteristics of this assay have been determined by [employer]. The modifications have not been cleared or approved by the FDA. This assay has been validated pursuant to the CLIA regulations and is used for clinical purposes. ?? For additional information, please refer to http://education.Docebo/faq/PEY080g4 (This link if provided for information/ educational purposes only.) 11/17/2020 3:58 PM EDT us Cassie SANTOS LAB BLOOD ORDERABLES Olamide christel Result [facility] [address] [place] [address], from Last 3 Months or Most Recently Relevant to Health Maintenance Insurance [facility] , [address] [address] [facility] Care Teams Auto Mechanics Instructor Relationship Specialty Start Date End Date Karri Pierson MD [address] [place] [phone] PCP - General Internal Medicine 02/21/12
--- OUTSIDE RECORDS SUMMARY | 2024-08-16 16:06 | XMS_ITS | Encounter Summary ---
Author Organization [employer] Address [address] [facility] 7t [place] [address] Care Team Providers Care Net Architect Name Role Phone Karri Pierson MD Primary Care Provider [phone] Encounter Details Date Type Department Care Team ([facility] st Contact Info) Description 10/25/2023 Orders Only [facility] MED & PEDS [address] [place], [place] [phone] Karri Pierson MD [address] [place], [place] [phone] BV (bacterial vaginosis) (Primary Dx); Candidiasis Social History Tobacco Use Types Packs/Day Years Used Date Smoking Tobacco: Never Passive Smoke Exposure: Never Smokeless Tobacco: Never Alcohol Use Standard Drinks/Week Comments Never 0 (1 standard drink = 0.6 oz pur e alcohol) Depression Answer Date Recorded Patient Health Questionnaire-9 Score 7 08/11/2022 Housing Stability Answer Date Recorded What is your housing situation today? I have wilma kath 08/21/[address] you li [...] 09/03/2024 9:30 AM EDT Office Visit [facility] MED [facility] PEDS [address] [place] [address] Karri Pierson MD [address] [place] [address] documented as of this encounter Visit Diagnoses Diagnosis BV (bacterial vaginosis)- Primary Unspecified vaginitis and vulvovaginitis Candidiasis documented in this encounter Additional Health Concerns Assessment Noted Time PHQ-9 Depression Total Score: 7 08/12/19 23 1:21 PM EDT documented as of this encounter Care Teams Net Architect Relationship Specialty Start Date End Date Karri Pierson MD [address] [place] [address] PCP - General Internal Medicine 02/21/12 documented as of this encounter
--- OUTSIDE RECORDS SUMMARY | 2024-08-16 16:06 | XMS_ITS | Clinical Summary ---
Author Organization [facility] Address [address] [place] [address] Care Team Providers Care Machine Deburrer Name Role Phone Unavailable Primary Care Provider Unavailabl e Allergies No known active allergies Medications No known medications Active Problems No known active problems Social History Tobacco Use Types Packs/Day Years Used Date Smoking Tobacco: Never Smokeless Tobacco: Never Alcohol Use Standard Drinks/Week Comments Yes 0 (1 standard drink = 0.6 oz pur e alcohol) social Sex and Gender Information Value Date Recorded Sex Assigned at Female 05/18/2021 5:24 PM EST Gender Identity Not on file Sexual Orientation Not on file Job Start Date Occupation Industry Not on file Not on file Not on file Last Filed Vital Signs Vital Sign Reading Time Taken Comments Blood Pressure 145/93 05/18/2021 5:00 PM EST Pulse 81 05/18/2021 5:00 PM EST Temperature 36.6 ??C (97.8 ??F) 05/18/2021 5:00 PM ES T Respiratory Rate 18 05/18/2021 5:00 PM EST Oxygen Saturation 97% 05/18/2021 5:00 PM EST Inhaled Oxygen Concentration - - Weight 62.6 kg (138 lb) 05/18/2021 5:00 PM EST Height 162.6 cm (5' 4 ) 05/18/2021 5:00 PM EST Body Mass Index 23.69 05/18/2021 5:00 PM EST Plan of Treatment Health Maintenance Due Date Last Done Comments Hepatitis B Vaccines (1 of 3 - 3-dose series) 1975 Hepatitis C Screening 1975 COVID-19 Vaccine (#1) 05/17/1976 Depression Screening 1987 Preventative Health Evaluation 11/14/1993 DTap / Tdap / Td (1 - Tdap) 11/14/1994 Cervical Cancer Screening (P ap Smear) 11/14/1996 Colon Cancer Screening (Colonoscopy) 11/14/2020 Influenza Vaccine (#1) 2023 Pneumococcal Vaccine Aged Out No long er eligible based on patient's age to complete this topic RSV Ped < 20 months Aged Out No longe r eligible based on patient's age to complete this topic
--- OUTSIDE RECORDS SUMMARY | 2024-08-16 16:06 | XMS_ITS | Encounter Summary ---
Author Organization [employer] Address 75 [facility] [address], [place] [address] Care Team Providers Care Bacon Skinner Name Role Phone Karri Pierson MD Primary Care Provider [phone] Reason for Visit * Reason Onset Date Comments Med Refill 06/27/2023 Encounter Details Date Type Department Care Team ([facility] st Contact Info) Description 06/27/2023 Telephone [facility] MED & PEDS [address] [place], [place] [phone] Karri Pierson MD [address] [place], [place] [phone] Med Refill Social History Tobacco Use Types Packs/Day Years [...] encounter Miscellaneous Notes * Telephone Encounter - Lorenza Nick - 06/27/2023 10:47 AM EST TC from pt requesting medication refill. Pt was seen with provider yesterday (3/4) Medications needing refill : oxyCODONE-acetaminophen (Percocet) 5-325 MG tablet To be sent to: [id number] - [place], [place] - [address] [place] [address] ST [facility] [address] documented in this encounter Plan of Treatment Upcoming Encounters Date Type Department Care Team (Late st Contact Info) Description 09/03/2024 9:30 AM EDT Office Visit [facility] CHC MED & PEDS [address] [place] [address] Karri Pierson MD [address] [place] [address] documented as of this encounter Visit Diagnoses Diagnosis Acute pain of left shoulder documented in this encounter Additional Health Concerns Assessment Noted Time PHQ-9 Depression Total Score: 7 08/12/19 23 1:21 PM EDT documented as of this encounter Care Teams Bacon Skinner Relationship Specialty Start Date End Date Karri Pierson MD [address] [place] [address] PCP - General Internal Medicine 02/21/12 documented as of this encounter
--- OUTSIDE RECORDS SUMMARY | 2024-08-16 16:06 | XMS_ITS | Encounter Summary ---
Author Organization [employer] Address [address] [facility] [address] [place] [address] Care Team Providers Care Jet Dyeing Machine Tender Name Role Phone Karri Pierson MD Primary Care Provider [phone] Reason for Visit * Reason Onset Date Comments Nurse Triage 03/28/2023 Encounter Details Date Type Department Care Team (Late st Contact Info) Description 03/28/2023 Telephone [facility] [address] [place] [address] Karri Pierson MD [address] [place] [address] [phone] Nurse Triage Social History Tobacco Use Types [...] t he electric, gas, oil or water [email or web address] threatened to shut off services in your [...] Telephone Encounter - Vickie Franz RN - 03/28/2023 9:26 AM EST Triage call Pt reports 2 weeks ago, wearing heels and going down some stairs, Pt thought she was going to miss a step , twisted and grabbed onto railing. Pt heard a pop at that time and has had pain in the left shoulder ever since. Pt reports pain has a burning sensation and is able to lift armto breast level but, hears a clicking noise with movement. Pt has pain from left shoulder to elbow/hand at times. Pt continues to work. Pt has taken ibuprofen with some effect and is using ice often.Apt with PCP 03/31/23 @ 315pm. Pt requested apt on Monday. Pt agrees with disposition and home care reviewed. Protocol Used: Shoulder Injury (Adult) Care Advice Discussed: * Reassurance and Education - Bending or Twisting Injury (Strain, Sprain) * Use a Cold Pack for Pain, Swelling, or Bruising * Use Heat on Area After 48 Hours * Rest vs. Movement * Expected Course * Reasons To Call Back - Severe pain persists over 2 hours after pain medicine and ice - Swelling or bruise becomes over 2 inches (5 cm). - Pain not improved after 3 days - Pain or swelling lasts over 2 weeks - You become worse * Telephone Encounter - Myrtle Gamble - 03/28/2023 9:07 AM EST Symptom: Shoulder Pain - Not From Injury Outcome: Schedule an appointment to be seen within 24 hours Reason: Caller denied all higher acuity questions The caller accepted this outcome documented in this encounter Plan of Treatment Upcoming Encounters Date Type Department Care Team (Late st Contact Info) Description 09/03/2024 9:30 AM EDT Office Visit [facility] MED & PEDS [address] [place] [address] Karri Pierson MD [address] [place] [address] documented as of this encounter Visit Diagnoses Not on filedocumented in this encounter Additional Health Concerns Assessment Noted Time PHQ-9 Depression Total Score: 7 08/12/19 23 1:21 PM EDT documented as of this encounter Care Teams Jet Dyeing Machine Tender Relationship Specialty Start Date End Date Karri Pierson MD [address] [place] [address] PCP - General Internal Medicine 02/21/12 documented as of this encounter
== END 2024-08-16 18:04 ==
LOC: HO.HGI 15:41
PROVIDERS: PCP Internal Medicine; Visit Provider Nurse Practitioner Family
DX: Z01.818 Encounter for other preprocedural examination (principal); Z12.11 Encounter for screening for malignant neoplasm of colon
CPT/HCPCS: 99202

== ENCOUNTER → 2024-08-16 15:40 | Outpatient (BNVA) | payer OTHER, SELFPAY | PROVIDERS: PCP Internal Medicine; Visit Provider Nurse Practitioner Family ==

== ENCOUNTER 2024-09-03 10:29 | Outpatient (REF) | payer OTHER, SELFPAY ==
--- OUTSIDE RECORDS SUMMARY | 2024-09-03 11:36 | XMS_ITS | Encounter Summary ---
Author Organization [employer] Address 75 [facility] 7t [place] [address] Care Team Providers Care E Tailer Name Role Phone Karri Pierson MD Primary Care Provider [phone] Reason for Visit * Reason Onset Date Comments Med Refill 06/27/2023 Encounter Details Date Type Department Care Team ([facility] st Contact Info) Description 06/27/2023 Telephone [facility] MED & PEDS [address] [place], [place] [phone] Karri Pierson MD [address] [place], [place] [phone] Med Refill Social History Tobacco Use Types [...] Miscellaneous Notes * Telephone Encounter - Lorenza Romero - 06/27/2023 10:47 AM EST TC from pt requesting medication refill. Pt was seen with provider yesterday (3/4) Medications needing refill : oxyCODONE-acetaminophen (Percocet) 5-325 MG tablet To be sent to: [id number] - [place], [place] - [facility] [address] [facility] [address] documented in this encounter Plan of Treatment Not on file documented as of this encounter Visit Diagnoses Diagnosis Acute pain of left shoulder documented in this encounter Additional Health Concerns Assessment Noted Time PHQ-9 Depression Total Score: 7 08/12/19 23 1:21 PM EDT documented as of this encounter Care Teams E Tailer Relationship Specialty Start Date End Date Karri Pierson MD [address] [place] [id number] PCP - General Internal Medicine 02/21/12 documented as of this encounter
--- OUTSIDE RECORDS SUMMARY | 2024-09-03 11:36 | XMS_ITS | Encounter Summary ---
Author Organization [employer] Address 75 [facility] 7t [place] [address] Care Team Providers Care Bilingual Operator Name Role Phone Karri Pierson MD Primary Care Provider [phone] Reason for Visit * Reason Onset Date Comments Call Back Request 05/22/2023 Encounter Details Date Type Department Care Team (Late st Contact Info) Description 05/22/2023 Telephone [facility] [address] [place] [address] Karri Pierson MD [address] [place], [place] [phone] Call Back Request Social History Tobacco Use [...] t he electric, gas, oil or water [employer] [address] threatened to shut off services in your [...] documented as of this encounter Care Teams Bilingual Operator Relationship Specialty Start Date End Date Karri Pierson MD [address] [place] [id number] PCP - General Internal Medicine 02/21/12 documented as of this encounter
--- OUTSIDE RECORDS SUMMARY | 2024-09-03 11:36 | XMS_ITS | Encounter Summary ---
Author Organization [employer] Address [address] [facility] 7t [place] [address] Care Team Providers Care Environmental Permitting Specialist Name Role Phone Karri Pierson MD Primary Care Provider [phone] Reason for Visit * Reason Onset Date Comments Nurse Triage 01/22/2024 Encounter Details Date Type Department Care Team (Late st Contact Info) Description 01/22/2024 Telephone [facility] [address] [place], [place] [phone] Karri Pierson MD [address] [place], [place] [phone] Nurse Triage Social History Tobacco Use Types [...] t he electric, gas, oil or water [employer] threatened to shut off services in your [...] to be seen today but, is in [facility] coming home from weekend shanita. Pt reports drinking plenty of liquids. Advised to try warm teas and agrees. Pt has obtained OTC dramamine and taken without effect. Pt is advised to try OTC meclizine which is helpful for dizziness and agreesto try. ASK apt [facility] 01/23/24 @ 340pm. Insurance is verified as [...] Before Standing * Telephone Encounter - Micheal Joshua - 01/22/2024 10:40 AM EDT Tc from [...] documented as of this encounter Care Teams Environmental Permitting Specialist Relationship Specialty Start Date End Date Karri Pierson MD [address] [place] [id number] PCP - General Internal Medicine 02/21/12 documented as of this encounter
--- OUTSIDE RECORDS SUMMARY | 2024-09-03 11:36 | XMS_ITS | Clinical Summary ---
Author Organization [employer] [facility] Address [address] [place] [address] Care Team Providers Care Dumbwaiter Operator Name Role Phone Unavailable Primary Care Provider Unavailabl e Surgical History Surgery Date Site/Laterality Comments CERVICAL BIOPSY W/ LOOP ELECTRODE EXCISION PROCEDURE: TN CONIZATION CERVIX W/WO D&C RPR ELTRD EXC; [...] on file Obstetrics History Plan of Treatment Upcoming Encounters Date Type Department Care Team (Late st Contact Info) Description 09/09/2024 4:15 PM EDT [facility]ointment [facility] [address] [address] Health Maintenance Due Date Last Done Comments [...] (Season Ended) 2024 Breast Cancer Screening 08/13/2025 08/14/19 24, 08/11/2022, 04/06/2021, Additional history exists HIB Vaccines [...] Procedure Name Priority Date/Time Associated Diagnosis Comments [facility] SCREENING DIGITAL Routine 08/14/2023 4:25 PM EDT Encounter for screening mammogram for malignant neoplasm of breast from Last 3 Months or Most Recently Relevant to Health Maintenance Results * [facility] SCREENING [facility] (08/14/2023 4:25 PM EDT) Anatomical Region Laterality Modality Mammography 08/14/2023 1:41 PM EDT Narrative 08/14/2023 4:25 PM EDT [facility] Diagnostic Imaging Department [address] [place] [address] [id number] Patient: ??SOPHIA ORTA ?/Age/Sex: 1975 - 47 - F Unit#: ??[id number] ? Location/Status: ??SPDIMAM/REG CLI ? Mnemonic/Ordering Site: ??DIGSC/SPMAM Ordering Physician: ??ROMAN PIERSON [facility] Screening Digital - 08/14/23 - 1411 Report Status:Signed EXAM: [facility] Screening Digital EXAM DATE AND TIME: 08/14/2023 2:12 PM HISTORY: ??Screening. Patient states 1520 pound weight loss since previous exam. Frozen left shoulder with severely decreased range of motion. COMPARISON: ??08/11/22, 04/05/21, 01/24/19 TECHNIQUE: Bilateral digital breast tomosynthesis was performed in the CC and MLO projections. Computer aided detection with Savision 3D 3.1 was employed. TISSUE DENSITY: b. [...] Procedure Note Candi Rodriguez MD - 12/11/2023 [facility] Diagnostic Imaging Department [address] [place] [address] Patient: SOPHIA ORTA Jesus Alberto /Age/Sex: 1975 - 47 - F Unit#: [id number] Location/Status: SPDIMAM/REG CLI Mnemonic/Ordering Site: [facility] Ordering Physician: ROMAN PIERSON [facility] Screening Digital - 08/14/23 - 1411 Report Status:Signed EXAM: [facility] Screening Digital EXAM DATE AND TIME: 08/14/2023 2:12 PM HISTORY: Screening. Patient states 1520 pound weight loss since previousexam. Frozen left shoulder with severely decreased range of motion. COMPARISON: 08/11/22, 04/05/21, 01/24/19 TECHNIQUE: Bilateral digital breast tomosynthesis was performed in the CCand MLO projections. Computer aided detection with Savision 3D 3.1was employed. TISSUE DENSITY: b. There [...]
--- OUTSIDE RECORDS SUMMARY | 2024-09-03 11:36 | XMS_ITS | Encounter Summary ---
Author Organization [employer] Address [address] 7[address] [place] [address] Care Team Providers Care Risk And Insurance Manager Name Role Phone Karri Pierson MD Primary Care Provider [phone] [phone] Encounter Details Date Type Department Care Team (Late st Contact Info) Description 05/15/2023 Telephone [facility] MEDICINE [address] [place] [address] Karri Pierson MD [address] [place], [place] [phone] Social History Tobacco Use Types Packs/Day Years [...] as of this encounter Plan of Treatment Not on file documented as of this encounter Visit Diagnoses Not on filedocumented in this encounter Additional Health Concerns Assessment Noted Time PHQ-9 Depression Total Score: 7 08/12/19 23 1:21 PM EDT documented as of this encounter Care Teams Risk And Insurance Manager Relationship Specialty Start Date End Date Karri Pierson MD [address] [place] [address] PCP - General Internal Medicine 02/21/12 documented as of this encounter
--- OUTSIDE RECORDS SUMMARY | 2024-09-03 11:36 | XMS_ITS | Encounter Summary ---
Author Organization [employer] Address [address] [facility] [address] 7 [place] [address] Care Team Providers Care Middle Stitcher Name Role Phone Karri Pierson MD Primary Care Provider [phone]- [phone] Reason for Referral * Imaging (Urgent) - Closed Specialty Diagnoses / Procedures Referred By Randy polk Referred To Contact Radiology Diagnoses Acute pain of left shoulder Procedures MR Shoulder w/o Contrast Left Karri Pierson MD [address] [place] [address] Phone: tel: fax: [facility] Center [address] [place] [address] Phone: tel: fax: Referral ID Status Reason Start Date Expiration Date Visits Re quested Visits Authorized [id number] Closed 05/02/2023 05/01/2024 1 1 Encounter Details Date Type Department Care Team ([facility] Contact Info) Description 05/01/2023 Orders Only [facility] CHC MED & PEDS [address] [place] [address] Karri Pierson MD [address] [place] [address] Acute pain of left shoulder (Primary Dx) [...] as of this encounter Plan of Treatment Scheduled Orders Name Type Priority Associated Diagnoses [...] documented as of this encounter Care Teams Middle Stitcher Relationship Specialty Start Date End Date Karri Pierson MD [address] [place] [address] PCP - General Internal Medicine 02/21/12 documented as of this encounter
--- OUTSIDE RECORDS SUMMARY | 2024-09-03 11:36 | XMS_ITS | Encounter Summary ---
Author Organization [employer] Address [address] [facility] 7t [place] [address] Care Team Providers Care Critical Care Nurse Practitioner Name Role Phone Karri Pierson MD Primary Care Provider [phone]- [phone] Reason for Visit * Reason Onset Date Comments Med Refill 06/16/2023 Encounter Details Date Type Department Care Team (Late st Contact Info) Description 06/16/2023 Refill [facility] MEDICINE [address] [place] [address] Karri Pierson MD [address] [place], [place] [phone] Acute pain of left shoulder (Primary Dx) [...] 5-325 MG tablet To be sent to: [id number] - [place], [place] - [facility] [address] [facility] [address] documented in this encounter Plan of Treatment Not on file documented as of this encounter Visit Diagnoses Diagnosis Acute pain of left shoulder- Primary documented in this encounter Additional Health Concerns Assessment Noted Time PHQ-9 Depression Total Score: 7 08/12/19 1:21 PM EDT documented as of this encounter Care Teams Critical Care Nurse Practitioner Relationship Specialty Start Date End Date Karri Pierson MD [address] [place] [address] PCP - General Internal Medicine 02/21/12 documented as of this encounter
--- OUTSIDE RECORDS SUMMARY | 2024-09-03 11:37 | XMS_ITS | Encounter Summary ---
Author Organization [employer] Address [address] [facility] [address]t [place] [address] Care Team Providers Care Pathology Laboratory Technologist Name Role Phone Karri Pierson MD Primary Care Provider [phone] Encounter Details Date Type Department Care Team ([facility] st Contact Info) Description 08/17/2022 Abstract [facility] CHC MED & PEDS [address] [place], [place] [phone] Karri Pierson MD [address] [place], [place] [phone] Social History Tobacco Use Types Packs/Day Years [...] on file documented as of this encounter Procedures Procedure Name Priority Date/Time Associated Diagnosis Comments MAMMOGRAPHY Routine 08/11/2022 documented in this encounter Results * Mammography (08/11/2022) HM Mammogram performed Anatomical Region Laterality Modality Other us Historical Provider HEALTH MAINTENANCE Final Result documented in this encounter Visit Diagnoses Not on filedocumented in this encounter Additional Health Concerns Assessment Noted Time PHQ-9 Depression Total Score: 7 08/12/19 23 1:21 PM EDT documented as of this encounter Care Teams Pathology Laboratory Technologist Relationship Specialty Start Date End Date Karri Pierson MD [address] [place] [address] PCP - General Internal Medicine 02/21/12 documented as of this encounter
--- OUTSIDE RECORDS SUMMARY | 2024-09-03 11:37 | XMS_ITS | Encounter Summary ---
Author Organization [employer] Address [address] [facility] 7t [place] [address] Care Team Providers Care Light Rail Operator Name Role Phone Karri Pierson MD Primary Care Provider [phone] Reason for Visit * Reason Comments extended office visit Allergic Rhinitis Encounter Details Date Type Department Care Team ([facility] Contact Info) Description 09/03/2024 9:30 AM EDT Office Visit [facility] MED & PEDS [address] [place], [place] [phone] Karri Pierson MD [address] [place], [place] [phone] Anemia, unspecified type (Primary Dx); Urine abnormality; Other constipation Social History Tobacco Use Types Packs/Day Years Used Date Smoking Tobacco: Never Passive Smoke Exposure: Never Smokeless Tobacco: Never Alcohol Use Standard Drinks/Week Comments Never 0 (1 standard drink = 0.6 oz pur e alcohol) Depression Answer Date Recorded Patient Health Questionnaire-9 Score 2 09/03/2024 Patient Health Questionnaire-9 Score 2 09/03/2024 Last PHQ-9: Questionnaire Data Not on file 0 09/03/2024 Housing Stability Answer Date Recorded What is your housing situation today? I have wilma [place] 09/03/[address] you li ve. Do you have problems with any of the following? None of the above 09/03/2024 Food Insecurity Answer Date Recorded Within the past 12 months, y ou worried that your food would run out before you got money to buy more: Never True 09/03/2024 Within the past 12 months,th e food you bought just didn't last and you didn't have enough money to get more: Never True Transportation Answer Date Recorded In the past 12 months, has l ack of transportation kept you from medical appts, meetings, work or from getting things needed for daily living? No 09/03/2024 Utilities Answer Date Recorded In the past 12 months, has t he electric, gas, oil or water company threatened to shut off services in your home? No 09/03/2024 Depression Answer Date Recorded Patient Health Questionnaire-2 Score 0 09/03/2024 Internet Access Answer Date Recorded Internet Access Q1 Yes 09/03/2024 Internet Access Q2 Not on file 09/03/2024 Comments Unknown Sex and Gender Information Value Date Recorded Sex Assigned at Female 02/21/2022 10:22 AM EDT Legal Sex Female 10:22 AM EDT Gender Identity Female 02/21/2022 10:22 AM EDT Sexual Orientation Straight 02/21/2022 10 :22 AM EDT documented as of this encounter Last Filed Vital Signs Vital Sign Reading Time Taken Comments Blood Pressure 102/65 09/03/2024 9:39 AM EDT Pulse 73 09/03/2024 9:39 AM EDT Temperature 36.6 ??C (97.8 ??F) 09/03/2024 9:39 AM ED T Respiratory Rate 20 09/03/2024 9:39 AM EDT Oxygen Saturation 95% 09/03/2024 9:39 AM EDT Inhaled Oxygen Concentration - - Weight 71.7 kg (158 lb) 09/03/2024 9:39 AM EDT Height 162.6 cm (5' 4 ) 09/03/2024 9:39 AM EDT Body Mass Index 27.12 09/03/2024 9:39 AM EDT documented in this encounter Plan of Treatment Scheduled Orders Name Type Priority Associated Diagnoses Orde r Schedule CBC auto differential Lab Routine Anemia, unspecified type Expected: 09/03/2024 (Approximate), Expires: 09/03/2025 Urinalysis, Complete, with Reflex to Culture Lab Routine Urine abnormality Expected: 09/03/2024 (Approximate), Expires: 09/03/2025 documented as of this encounter Visit Diagnoses Diagnosis Anemia, unspecified type- Primary Urine abnormality Other nonspecific finding on examination of urine Other constipation documented in this encounter Additional Health Concerns Assessment Noted Time PHQ-9 Depression Total Score: 2 09/04/19 25 10:20 AM EDT documented as of this encounter Care Teams Light Rail Operator Relationship Specialty Start Date End Date Karri Pierson MD [address] [place] [address] PCP - General Internal Medicine 02/21/12 documented as of this encounter
--- OUTSIDE RECORDS SUMMARY | 2024-09-03 11:37 | XMS_ITS | Encounter Summary ---
Author Organization [employer] Address [address] [facility] 7t [place] [address] Care Team Providers Care Director Design Name Role Phone Karri Pierson MD Primary Care Provider [phone] Encounter Details Date Type Department Care Team (Late st Contact Info) Description 10/25/2023 Orders Only [facility] CHC MED & PEDS [address] [place], [place] [phone] Karri Pierson MD [address] [place], [place] [phone] BV (bacterial vaginosis) (Primary Dx); Candidiasis Social [...] t he electric, gas, oil or water [employer] threatened to shut off services in your [...] documented as of this encounter Care Teams Director Design Relationship Specialty Start Date End Date Karri Pierson MD [address] [place] [address] PCP - General Internal Medicine 02/21/12 documented as of this encounter
--- OUTSIDE RECORDS SUMMARY | 2024-09-03 11:37 | XMS_ITS | Clinical Summary ---
Author Organization [facility] Address [address] [place] [address] Care Team Providers Care Ad Operations Coordinator Name Role Phone Unavailable Primary Care Provider [...]
--- OUTSIDE RECORDS SUMMARY | 2024-09-03 11:37 | XMS_ITS | Encounter Summary ---
Author Organization [employer] Address [address] [facility] 7t [place] [address] Care Team Providers Care Manager Rfid Name Role Phone Karri Pierson MD Primary Care Provider [phone] Reason for Visit * Reason Onset Date Comments Call Back Request 10/03/2023 Encounter Details Date Type Department Care Team (Late st Contact Info) Description 10/03/2023 Telephone [facility] MEDICINE [address] [place] [address] Karri Pierson MD [address] [place], [place] [phone] Call Back Request Social History Tobacco Use [...] documented as of this encounter Care Teams Manager Rfid Relationship Specialty Start Date End Date Karri Pierson MD [address] [place] [address] PCP - General Internal Medicine 02/21/12 documented as of this encounter
--- OUTSIDE RECORDS SUMMARY | 2024-09-03 11:37 | XMS_ITS | Encounter Summary ---
Author Organization [employer] Address [address] [facility] 7t [place] [address] Care Team Providers Care Audio Visual Coordinator Name Role Phone Karri Pierson MD Primary Care Provider [phone] Encounter Details Date Type Department Care Team (Late st Contact Info) Description 08/15/2023 Orders Only [facility] [address] [place], [place] [phone] Provider, MD Radha Social History Tobacco Use [...] Modality Breast Bilateral Mammography us Historical Provider MD LOPEZ BI PROCEDURES Final R esult documented in this encounter Visit Diagnoses Not on filedocumented in this encounter Additional Health Concerns Assessment Noted Time PHQ-9 Depression Total Score: 7 08/12/19 23 1:21 PM EDT documented as of this encounter Care Teams Audio Visual Coordinator Relationship Specialty Start Date End Date Karri Pierson MD [address] [place] [address] PCP - General Internal Medicine 02/21/12 documented as of this encounter
--- OUTSIDE RECORDS SUMMARY | 2024-09-03 11:37 | XMS_ITS | Encounter Summary ---
Author Organization [employer] Address [address] [facility] 7t [place] [address] Care Team Providers Care Steeler Name Role Phone Karri Pierson MD Primary Care Provider [phone]- [phone] Encounter Details Date Type Department Care Team (Late st Contact Info) Description 08/15/2022 Orders Only [facility] CHC MED & PEDS [address] [place], [place] [phone] Karri Pierson MD [address] [place], [place] [phone] Cervicogenic headache (Primary Dx) Social History Tobacco [...] documented as of this encounter Care Teams Steeler Relationship Specialty Start Date End Date Karri Pierson MD [address] [place] [address] PCP - General Internal Medicine 02/21/12 documented as of this encounter
--- OUTSIDE RECORDS SUMMARY | 2024-09-03 11:37 | XMS_ITS | Encounter Summary ---
Author Organization [employer] Address [address] [facility] [address] 7[address] [place] [address] Care Team Providers Care Preflight Inspector Name Role Phone Karri Pierson MD Primary Care Provider [phone] Encounter Details Date Type Department Care Team (Latest Contact Info) Description 09/03/2024 Travel Social History Tobacco Use Types Packs/Day Years [...] documented as of this encounter Care Teams Preflight Inspector Relationship Specialty Start Date End Date Karri Pierson MD [address] [place] [address] PCP - General Internal Medicine 02/21/12 documented as of this encounter
--- OUTSIDE RECORDS SUMMARY | 2024-09-03 11:37 | XMS_ITS | Encounter Summary ---
Author Organization [employer] Address [address] [facility] 7t [place] [address] Care Team Providers Care Transportation Logistics Internship Name Role Phone Karri Pierson MD Primary Care Provider [phone] Reason for Visit * Reason Onset Date Comments Nurse Triage 03/28/2023 Encounter Details Date Type Department Care Team (Late st Contact Info) Description 03/28/2023 Telephone [facility] MEDICINE [address] [place] [address] Karri Pierson MD [address] [place], [place] [phone] Nurse Triage Social History Tobacco Use Types [...] documented as of this encounter Care Teams Transportation Logistics Internship Relationship Specialty Start Date End Date Karri Pierson MD [address] [place] [address] PCP - General Internal Medicine 02/21/12 documented as of this encounter
--- OUTSIDE RECORDS SUMMARY | 2024-09-03 11:37 | XMS_ITS | Clinical Summary ---
Author Organization [employer] Address [address] [facility] [address] [place] [address] Care Team Providers Care Network Applications Specialist Name Role Phone Karri Pierson MD Primary Care Provider Allergies Active Allergy Reactions Criticality Noted Date Comments Phenazopyridine 05/27/2013 Other reaction(s): Nausea / Vomiting Medications permethrin (Elimite) 5 % cream apply to skin from hairline to toes and wash off 8-10 hours later. May repeat in 1-2 weeks if sx persist 60 g 1 3 Active Diclofenac Sodium 1 % gelIndications:Ac florinda pain of left shoulder To apply to [...] prn nausea daily 20 tablet 4 Active polyethylene glycol, PEG, 3350 (Miralax) 17 g packetIndications :Other constipation Take 17 g by mouth Once per day for 18 days. 6 packet 2 5 09/22/19 25 Active Active Problems Problem Noted Date Diagnosed Date Anemia 12/14/2011 Opioid abuse 12/14/2011 Backache 12/14/2011 Encounters Date Type Department Care Team Description 09/03/2024 9:30 AM EDT Office Visit [facility] [address] [place] [address] Karri Pierson MD Anemia, unspecified type (Primary Dx); Urine abnormality; Other constipation 09/03/2024 Travel 07/17/2024 Telephone [facility] [address] [place] [address] Karri Pierson MD Nurse Triage from Last [...] is your housing situation today? I have [place] 09/03/[address] you [...] the past 12 months, has t he [employer], gas, oil or water [employer] threatened to shut off services in your [...] Mass Index 27.12 09/03/2024 9:39 AM EDT Plan of Treatment Health Maintenance Due Date Last Done Comments CT Colonography 1975 Colonoscopy 1975 Colorectal Cancer Screening 1975 FIT DNA/Cologuard 1975 FIT 1975 FOBT 1975 Sigmoidoscopy 1975 Family Planning (PISQ) 11/14/1990 Hepatitis B Vaccines (3 of 3 - 19+ 3-dose series) 07/10/2012 05/15/2012, 03/27/2012, 10/18/2011 COVID-19 Vaccine ( season) 2023 02/18/2022, 05/27/2021, 09/17/2020, Additional history exists Influenza Vaccine (#1) 2023 01/24/2012 Mammogram 08/13/2024 08/14/2023, 04/2 05/2023, 08/11/2022 Alcohol/Substance Use Screening 09/03/2025 09/03/2024 Depression Screening 09/03/2025 09/03/2024, 09/04/19 SDOH Screening 09/03/2025 09/03/2024 Tobacco Screening 09/03/2025 09/03/2024 Zoster Vaccines (1 of 2) 11/14/2025 Cervical [...] PM EDT) Hepatitis A IgM Nonreactive Nonreactive [facility] Comment:IgM antibodies to VILLAR V not detected; does not exclude earlyacute or recovered HAV infection. ~Hepatitis B Surface Antibody NONREACTIVE Nonreactive [facility] Comment:Nonreactive: < 8.00 mIU/mL Hepatitis B Core Antibody Nonreactive Nonreactive [facility] Hepatitis C Antibody Nonreactive Nonreactive [facility] Comment:Antibodies to HCV no t detected; does not exclude early acuteHCV infection. Hepatitis B Surface Ag Negative Negative [facility] Blood Venous blood specimen / Unknown 08/24/2023 2:48 PM EDT 08/24/2023 5:15 PM EDT us Karri Pierson MD LAB BLOOD ORDERABLES Final Result Performing Organization Address [facility]/ZIP Co de Phone Number [facility] [address] [place] [address] [phone] * HIV-1/2 Antigen and Antibodies, Fourth Generation, with Reflexes (08/24/2023 2:48 PM EDT) HIV AB/AG Nonreactive Nonreactive [facility] Comment:HIV-1 p24 Ag and/or HIV-1/HIV-2 Ab not detected.A test result that is nonreactive does not exclude thepossibility of exposure to or infection with HIV-1 and/orHIV-2. Nonreactive results in this assay for individualswith prior exposure to HIV-1 and/or HIV-2 may be due toantigen and antibody levels that are below the limit ofdetection of this assay.The [employer] HIV Ag/Ab Combo assay result andsupplemental assay results should be interpreted inconjunction with the patient's clinical presentation,history and other laboratory results. If the results areinconsistent with clinical evidence, additional testing issuggested to confirm the result. Blood Venous blood specimen / Unknown 08/24/2023 2:48 PM EDT 08/24/2023 5:15 PM EDT us Karri Pierson MD LAB BLOOD ORDERABLES Final Result Performing Organization Address [facility]/ZIP Co de Phone Number [facility] [address] [place] [address] [phone] * BI Mammogram Screening Bilateral (08/14/2023 10:03 AM EDT) Anatomical Region Laterality Modality Breast Bilateral Mammography us Historical Provider MD LOPEZ BI PROCEDURES Final R esult * THINPREP [...] historic and ?? current clinical information. ?? Airplane Pilot Photogrammetry : SEE COMMENT [facility] Comment: GSG, CT(ASCP) CT screening location: [address] ??[id number] Interpretation/R esult: Negative for intraepithelial lesion or malignancy. [facility] LMP: IUD [facility] Prev. BX: NONE GIVEN [facility] Prev. PAP: NONE GIVEN [facility] SOURCE: None given [facility] Statement Of Adequacy: SEE COMMENT [facility] Comment: Satisfactory for evaluation. Endocervical/transformation zone component absent. 11/17/2020 3:58 PM EDT Cassie Gonzales CNM LAB PATHOLOGY ORDERABLES Final Result [facility] [address] * HPV mRNA E6/E7 (11/17/2020 3:58 PM EDT) HPV nRNA E6/E7 Not Detected Not Detected [facility] Comment: Methodology: Commercial Loan Manager-Mediated Amplification This assay detects E6/E7 viral messenger RNA (mRNA) from 14 high-risk HPV types (16,18,31,33,35,39,45,51,52,56,58,59,66,68). ? The analytical performance characteristics of this assay have been determined by [employer]. The modifications have not been cleared or approved by the FDA. This assay has been validated pursuant to the CLIA regulations and is used for clinical purposes. ?? For additional information, please refer to http://education.Interlude/faq/MYZ679j7 (This link if provided for information/ educational purposes only.) 11/17/2020 3:58 PM EDT us Cassie Gonzales [facility] BLOOD ORDERABLES Olamide christel Result [facility] [address] from Last 3 Months or Most Recently Relevant to Health Maintenance Insurance [facility] Care Teams Network Applications Specialist Relationship Specialty Start Date End Date Karri Pierson MD [address] [place] [id number] PCP - General Internal Medicine 02/21/12
[2024-09-03 13:58] LABS: Appearance Urine Cloudy; Color Urine Yellow; Glucose Urine UA Negative (Negative); Leukocyte Esterase Urine Moderate (2+) (Negative); Nitrite Urine Positive (Negative); PH 5.5 (5.0-9.0); UMIC TRIGGER UACC YES; Urine Blood Negative (Negative); Urine Ketones Negative (Negative); Urine Protein Negative (Neg-Trace)
[2024-09-03 14:03] LABS: Bacteria Urine 4+ (None Seen); Hyaline Casts Urine 0-2 /LPF (0-2); RBC Urine 0-2 /HPF (0-2); UACC Culture Trigger YES; WBC Urine 21-50 /HPF (0-5)
[2024-09-03 14:14] LABS: MANUAL DIFF FLAG NO
[2024-09-03 14:20] LABS: Basophils Percent Auto 0.5 % (0-2); Eosinophils Absolute Auto 0.1 X10*3/uL (0.0-0.4); Eosinophils Percent Auto 1.9 % (0-4); Hematocrit 39.1 % (37.0-47.0); Hemoglobin 12.9 g/dl (12.0-16.0); Imm Gran Abs Auto 0.01 X10*3/uL (0.00-0.03); Imm Gran Pct Auto 0.2 % (0.0-0.4); Lymphocytes Absolute Auto 2.1 X10*3/uL (1.2-4.9); Mean Corpuscular Hemoglobin 28.4 pg (27.0-33.0); Mean Corpuscular Volume 85.9 fL (80.0-98.0); Mean Platelet Volume 10.2 fL (9.4-12.3); Monocytes Absolute Auto 0.4 X10*3/uL (0.1-1.2); Monocytes Percent Auto 7.2 % (2-11); Neutrophils Percent Auto 53.2 % (45-73); Platelet Count 223 X10*3/uL (160-400); Red Blood Count 4.55 X10*6/uL (4.20-5.50); Red Cell Distribution Width 12.8 % (11.0-16.0); White Blood Count 5.7 X10*3/uL (4.8-10.8)
== END 2024-09-03 10:30 | disposition home or self-care (01) ==
LOC: HO.CHCLDS 10:29
PROVIDERS: Visit Provider Internal Medicine
DX: D64.9 Anemia, unspecified (principal); R82.90 Unspecified abnormal findings in urine
CPT/HCPCS: 36415; 81001; 85025; 87086; 87088; 87186

== ENCOUNTER 2024-10-31 07:53 | Day surgery (SDC) | payer OTHER, SELFPAY ==
--- OUTSIDE RECORDS SUMMARY | 2024-10-23 13:57 | XMS_ITS | Clinical Summary ---
Author Organization [facility] Address [address] [place] [address] Care Team Providers Care Surveillance Sensor Officer Name Role Phone Unavailable Primary Care Provider [...] 81 05/18/2021 5:00 PM EST Temperature 36.6 C (97.8 F) 05/18/2021 5:00 PM EST Respiratory Rate 18 05/18/2021 5:00 PM EST [...] Colon Cancer Screening (Colonoscopy) 11/14/2020 Influenza Vaccine (Season Ended) 2024 Pneumococcal Vaccine Aged Out No long er eligible based on patient's age to complete this topic RSV Ped < 20 months Aged Out No longe r eligible based on patient's age to complete this topic
--- OUTSIDE RECORDS SUMMARY | 2024-10-23 13:57 | XMS_ITS | Encounter Summary ---
Author Organization [employer] Address [address] [facility] [address] [place] [address] Care Team Providers Care Bladder Tier Name Role Phone Karri Pierson MD Primary Care Provider [phone] Reason for Visit * Reason Onset Date Comments Nurse Triage 01/22/2024 Encounter Details Date Type Department Care Team (Late st Contact Info) Description 01/22/2024 Telephone [facility] [address] [place] [address] Karri Pierson MD [address] [place], [place] [phone] Nurse Triage Social History Tobacco Use Types [...] t he electric, gas, oil or water [employer] threatened to shut off services in your [...] to be seen today but, is in [facility] coming home from weekend sh[place]. Pt reports drinking plenty of liquids. Advised to try warm teas and agrees. Pt has obtained OTC dramamine and taken without effect. Pt is advised to try OTC meclizine which is helpful for dizziness and agreesto try. ASK apt [facility] 01/23/24 @ 340pm. Insurance is verified as [...] documented as of this encounter Care Teams Bladder Tier Relationship Specialty Start Date End Date Karri Pierson MD [address] [place] [phone] PCP - General Internal Medicine 02/21/12 documented as of this encounter
--- OUTSIDE RECORDS SUMMARY | 2024-10-23 13:57 | XMS_ITS | Clinical Summary ---
Author Organization [facility] Address [address] [place] [address] Phone Care Team Providers Care Signal Inspector Name Role Phone Karri Pierson MD Primary Care Provider [phone] Encounters Date Type Department Care Team Description 09/09/2024 4:03 PM EDT - 09/09/2024 11:59 PM EDT Hospital [facility] [address] [phone] Encounter for screening mammogram for breast cancer Discharge Disposition: Home or Self Care from Last 3 Months Surgical History Surgery Date Site/Laterality Comments CERVICAL BIOPSY W/ LOOP ELECTRODE EXCISION PROCEDURE: OH CONIZATION CERVIX W/WO D&C RPR ELTRD EXC; [...] = 0.6 oz pur e alcohol) Comments No Sex and Gender Information Value Date Recorded Sex Assigned at Not on file Legal Sex Female 8:00 AM EST Gender Identity Not on file Sexual Orientation Not on file Obstetrics History Para Term AB IAB SAB Ectopic Multiple Livin g Live Births 2 Last Filed Vital Signs Vital Sign Reading Time Taken Comments Blood Pressure - - Pulse - - Temperature - - Respiratory Rate - - Oxygen Saturation - - Inhaled Oxygen Concentration - - Weight - - Height 162.6 cm (5' 4 ) 09/09/2024 4:07 PM EDT Body Mass Index - - Plan of Treatment Health Maintenance Due Date Last Done Comments Cervical Cancer Screening: Pap Smear 11/14/1996 Hepatitis B Vaccines (3 of 3 - 19+ 3-dose series) 07/10/2012 05/15/2012, 03/27/2012, 10/18/2011 Colorectal Cancer Screening: Colonoscopy 03/27/2022 Hepatitis C Screening 03/27/2022 Social Influencers of Health Screening 03/27/2022 COVID-19 Vaccine ( season) 2023 02/18/2022, 05/27/2021, 09/17/2020, Additional history exists Influenza Vaccine (Season Ended) 2024 01/24/2012 Depression Screening 09/03/2025 09/03/2024 Breast Cancer Screening 09/09/2026 09/10/19, 08/14/2023, 08/11/2022, Additional history exists DTaP,Tdap,and Td Vaccines (3 - Td or Tdap) 11/01/2026 11/01/2016, 07/13/2004 Hepatitis A Vaccines Completed 03/02/2022, 10/18/19 HIV Screening Completed 08/24/2023 HIB Vaccines Aged Out [...] Procedure Name Priority Date/Time Associated Diagnosis Comments MG MAMMO DIGITAL SCREENING W OTF BILAT Routine 09/09/2024 4:14 PM EDT Encounter for screening mammogram for breast cancer from Last 3 Months Results * MG Mammo Digital Screening w Otf bilat (09/09/2024 4:14 PM EDT) Anatomical Region Laterality Modality Breast Bilateral Mammography 09/10/2024 8:07 AM EDT Impressions 09/10/2024 8:12 AM EDT No mammographic evidence of malignancy. A negative mammogram in the presence of a clinically suspicious palpable abnormality does not preclude the possibility of malignancy or alter the indications for biopsy. PQRI CPT II 3342F Code 22929, 17021 PQRI 225 CPT II 7025F TISSUE DENSITY: There are scattered areas of fibroglandular density. (BI-RADS category B) IMPRESSION: Benign. BI-RADS CATEGORY: 2 - BENIGN RECOMMENDATION: Screening bilateral mammogram is recommended in 1 year. Mammo Location: [facility], [address] [place] [address] -------- FINAL REPORT -------- Dictated By: Tyrel Kilgore Dictated Date: 09/10/2024 08:07 ET Assigned Physician: Tyrel Kilgore Reviewed and Electronically Signed By: Tyrel Kilgore Signed Date: 09/10/2024 08:12 ET Workstation ID: [id number] Transcribed By: Self Edit Transcribed Date: 09/10/2024 08:07 ET Narrative 09/10/2024 8:12 AM EDT CLINICAL: The patient is a 48 years Female presenting for routine screening mammography. 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 COMPARISON: Most recently 08/14/2023 and most remotely 01/03/2017. TECHNIQUE: Full-field digital mammography of the breasts bilaterally consisting of tomosynthesis in MLO and CC projection is performed in the [employer]era Lightinge 2000-D unit. Computer aided detection utilizing the iCAD system was utilized. FINDINGS: The MLO views are limited due to the poor mobility of the left shoulder. The breasts are again seen to be composed of a combination of fatty and fibroglandular elements. A few scattered benign calcifications are again noted. There is no suspicious cluster of microcalcifications, mass, or area of architectural distortion. There is no skin thickening or nipple retraction. Procedure Note Tyrel Kilgore MD - 09/10/2024 CLINICAL: The patient is a 48 years Female presenting for routinescreening mammography. The patient has a frozen shoulder with decreasedrange of motion. COMPARISON: Most recently 08/14/2023 and most remotely 01/03/2017. TECHNIQUE: Full-field digital mammography of the breasts bilaterallyconsisting of tomosynthesis in MLO and CC projection is performed in theLunera Lightinge 2000-D unit. Computer aided detection utilizing the [employer] was utilized. FINDINGS: The MLO views are limited due to the poor mobility of the leftshoulder. The breasts are again seen to be composed of a combination of fatty andfibroglandular elements. A few scattered benign calcifications are againnoted. There is no suspicious cluster of microcalcifications, mass, orarea of architectural distortion. There is no skin thickening or nippleretraction. IMPRESSION: No mammographic evidence of malignancy. A negative mammogram in the presence of a clinically suspicious palpableabnormality does not preclude the possibility of malignancy or alter theindications for biopsy. PQRI CPT II 3342F Code 27017, 38634 PQRI 225 CPT II 7025F TISSUE DENSITY: There are scattered areas of fibroglandular density.(BI-RADS category B) IMPRESSION: Benign. BI-RADS CATEGORY: 2 - BENIGN RECOMMENDATION: Screening bilateral mammogram is recommended in 1 year. Mammo Location: [facility], [address] [place] [phone] -------- FINAL REPORT -------- Dictated By: Tyrel Kilgore Dictated Date: 09/10/2024 08:07 ET Assigned Physician: Tyrel Kilgore Reviewed and Electronically Signed By: Tyrel Kilgore Signed Date: 09/10/2024 08:12 ET Workstation ID: [id number] Transcribed By: Self Edit Transcribed Date: 09/10/2024 08:07 ET us Self Referral Sppl IMG BI PROCEDURES Final Resul t from Last 3 Months Insurance [facility] Care Teams Signal Inspector Relationship Specialty Start Date End Date Karri Pierson MD [address] [place] [phone] PCP - General Internal Medicine 09/09/24
[2024-10-29 10:58] VITALS: BMI 26.4
--- NOTE | 2024-10-30 12:23 | P.CONAN_ITS ---
Documented by User: Quin Bolivar NP 10/30/24 12:24 HPI - Anesthesia Eval Consult details Narrative: 48yo F for Colonoscopy [facility] Active Problems Active Problems: All Active Problems Perimenopause (Acute) Cervical cancer screening (Acute) History of menorrhagia (Acute) Presence of 52 mg levonorgestrel-releasing intrauterine device (IUD) (Acute) Past Medical History Medical History (Updated 10/29/24 @ 10:57 by Barbie Ramirez RN) History of headache Anemia Family History Family History Mother Rheumatoid arthritis Surgical History Surgical History History of bilateral tubal ligation Social History Social History Alcohol intake: former Comment: Sober x2 years Patient Tobacco Use Status: Never used Tobacco Are you DNR?: No Advance Directives: No Advance Directives Information Provided: Yes Patient : No Meds Allergies Allergy/AdvReac Type Severity Reaction Status Date / Time No Known Allergies Allergy Verified 08/16/24 15:44 Home Medications ?Medication ?Instructions ?Recorded ?Confirmed ?Last Taken ?Type levonorgestrel 21 mcg/24 hr (up to intrauterine 10/24/23 Unknown History 8 years) 52 mg intrauterine device (Mirena) Exam Height,Weight and Vital Signs: Height 5 ft 4 in Weight 69.853 kg Assessment and Plan Assessment Anesthesia Assessment: Chart Reviewed Documented by User: Jose Mansfield MD 10/31/24 09:55 [facility] Past Medical History Medical History (Updated 10/29/24 @ 10:57 by Barbie Ramirez RN) History of headache Anemia Patient : No Family History Family History Mother Rheumatoid arthritis Family history of problems with anesthesia: No Surgical History Surgical History History of bilateral tubal ligation History of Problems with Anesthesia: No Social History Social History Alcohol intake: former Comment: Sober x2 years Patient Tobacco Use Status: Never used Tobacco Are you DNR?: No Advance Directives: No Advance Directives Information Provided: Yes Patient : No Meds Allergies Allergy/AdvReac Type Severity Reaction Status Date / Time No Known Allergies Allergy Verified 08/16/24 15:44 Home Medications ?Medication ?Instructions ?Recorded ?Confirmed ?Last Taken ?Type levonorgestrel 21 mcg/24 hr (up to intrauterine 10/24/23 Unknown History 8 years) 52 mg intrauterine device (Mirena) Exam Airway Mallampati Class: II TM Dist: >3cm Neck ROM: Full Partial: Upper Heart: ok Lungs: ok Assessment and Plan Assessment Anesthesia Assessment: Anesthesia Plan Discussed Final Anesthetic Review Family History of Problems with Anesthesia: No History of Problems with Anesthesia: No NPO: Yes ASA Class: II Final Preanesthetic Review: No Changes in Pt Med Stat, Meds/Allgs Chart Reviewed, Consent Obtained/Reviewed and Anes Risks/Benef Reviewed Patient Risk: Low Procedure Risk: Low Anesthetic Plan Anesthetic Plan: MAC: and Agree w/ Assess. and Plan Disposition: Standard PACU
[2024-10-31 08:11] VITALS: BMI 26.4
[2024-10-31 08:22] VITALS: BP 108/59; PULSE 74; RESP 16; TEMP 36.7; O2SAT 98
[2024-10-31] MEDS: Lactated Ringers 1,000 ML 100 ML IVCONT (08:34)
--- NOTE | 2024-10-31 08:52 | P.HPSUR_ITS ---
Pre-Procedural Eval Section A - 24 Hr Update-Section A only Date of Service: 10/31/24 Section B - Complete if H&P > 30 days Chief Complaint: screening Relevant Family History (Specify if Yes): No Relevant Social History: None Present Medications: see Short Stay Collaborative assessment Medical History: No relevant PMH History of Previous Operations: Relevant previous surgery/procedure and date(s) (History of bilateral tubal ligation) Allergies: Allergies Allergy/AdvReac Type Severity Reaction Status Date / Time No Known Allergies Allergy Verified 08/16/24 15:44 Review of Systems Sugical H&P ROS: Negative: Constitution, Cardiovascular, Respiratory, Jeremias rological, Psychiatric, Hem-Onc, Allergic/Immunologic, Gastrointestinal, Genitourinary, Musculoskeletal, Integumentary, Endocrine and Eyes/Ears/Nose/Throat Exam Surgical H&P Exam: Normal: HEENT, Normal: Heart, Normal: Lungs, Normal: Extremities, Normal: Abdomen, Normal: Skin and Normal: Neurological Plan Diagnosis/Plan: Unchanged I have reviewed the history and physical and performed a pertinent physical examination on my patient. No changes have occurred unless specified. Time Spent With Patient Time: Total time managing care of this patient today ____ minutes.
--- NOTE | 2024-10-31 09:59 | HO.OPN-COLON ---
Colonoscopy Operative Note Operative Note Date of Service: 10/31/24 Narrative: Operative Information Procedure Description: Colonoscopy Indication: screening Anesthesia: MAC COLONOSCOPY Instrument: Olympus variable stiffness pediatric scope 190L Colonoscopy Monitoring: Vital signs and clinical assessment, continuous EKG monitoring, Pulse oximetry, Carbon Dioxide monitoring and blood pressure monitoring were done throughout the procedure. Colon withdrawal time was 7 minutes. Procedure: The patient was placed in the left lateral decubitis position and pre-procedure medications were administered. After a digital rectal examination of the ano-rectum, the video colonoscope was inserted into the rectum and advanced through the colon to the cecum/TI. The colonoscope was slowly withdrawn in a retrograde panoramic fashion and the colon mucosa was carefully examined including a retroflexed view of the rectum. Findings and interventions are described below. Procedure Difficulty: easy Findings: Terminal Ileum-normal Cecum:normal Ascending Colon: normal Transverse Colon -normal Descending Colon:normal Sigmoid Colon: normal Rectum: Retroflexion with small internal hemorrhoids seen, grade I Anorectum - normal Intervention: none Colon preparation: [place] Bowel Preparation Scale Right colon; 1-2 Transverse colon: 1-2 Left colon; 1-2 (0 = Unprepared colon segment with mucosa not seen due to solid stool that cannot be cleared. 1 = Portion of mucosa of the colon segment seen, but other areas of the colon segment not well seen due to staining, residual stool and/or opaque liquid. 2 = Minor amount of residual staining, small fragments of stool and/or opaque liquid, but mucosa of colon segment seen well. 3 = Entire mucosa of colon segment seen well with no residual staining, small fragments of stool or opaque liquid) Impression and Post Procedure Diagnosis: internal hemorrhoids Plan: High fiber diet leaflet Avoid straining at stool, epsom salts and sitz bath, anusol supps or cream Repeat Colonoscopy in 6-12 months due to areas with poor prep or earlier if clinically indicated Above findings were reviewed with the patient and relevant handouts were provided if indicated.
[2024-10-31 10:04] VITALS: BP 87/48; PULSE 71; RESP 14; TEMP 36.7; O2SAT 98
[2024-10-31 10:09] VITALS: BP 96/48; PULSE 73; RESP 16; O2SAT 97
[2024-10-31 10:19] VITALS: BP 102/49; PULSE 70; RESP 16; TEMP 36.5; O2SAT 99
== END 2024-10-31 10:54 | disposition home or self-care (01) ==
PROVIDERS: PCP Internal Medicine; Visit Provider Internal Medicine Gastroenterology
PROC: 0DJD8ZZ Inspection of Lower Intestinal Tract, Via Natural or Artificial Opening Endoscopic (ICD-10-PCS; CPT 45378; principal; 2024-10-31 10:30)
DX: Z12.11 Encounter for screening for malignant neoplasm of colon (principal); K64.0 First degree hemorrhoids; D64.9 Anemia, unspecified; Z98.51 Tubal ligation status
CPT/HCPCS: 45378; J2003; J2704

== ENCOUNTER → 2024-10-31 07:53 | Outpatient (BNV) | payer OTHER, SELFPAY | PROVIDERS: PCP Internal Medicine; Visit Provider Internal Medicine Gastroenterology | DX: Z12.11 Encounter for screening for malignant neoplasm of colon (principal); K64.8 Other hemorrhoids | CPT/HCPCS: 45378 ==